=== PATIENT | male | born 1950 | race Caucasian/White ===

== ENCOUNTER → 2016-06-15 | Outpatient (CLI) | payer BC ==
[~2016-06-15] MED LIST: CHOL100027 PO; CYAN500T13 PO; METF1000 PO; MULT-506 PO; OMEG10007 PO; QUET1TAB37 PO; VITATAB19 PO
[2016-06-15 10:20] LABS: BLOOD UREA NITROGEN 15 mg/dl (7-18); BUN/CREATININE RATIO 11.1 (10-20); CALCIUM 8.9 mg/dl (8.5-10.1); CARBON DIOXIDE 27 mmol/L (21-32); CHLORIDE 108 mmol/L (98-107); GLUCOSE 202 mg/dl (70-99); POTASSIUM 4.2 mmol/L (3.5-5.1); SODIUM 142 mmol/L (136-145)
[2016-06-15 10:53] LABS: BASO % 0.6 %; BASO ABS # 0.04 K/uL (0-0.2); COMPLETE YES; EOS % 4.7 %; HEMATOCRIT 39.7 % (42-52); IG% 0.2 %; LYMPH % 32.7 %; LYMPH ABS # 2.08 K/uL (1.2-3.4); MEAN CORPUSCULAR HEMOGLOBIN 34.7 pg (25-34); MEAN PLATELET VOLUME 12.1 fL (7.4-10.4); NEUT % 53.8 %; PLATELET COUNT 124 K/uL (130-400); PLT ESTIMATE DECREASED; RED BLOOD COUNT 4.01 M/uL (4.7-6.1); WHITE BLOOD COUNT 6.36 K/uL (4.8-10.8)
== END | disposition home or self-care (01) ==
LOC: C.LAB1850 09:12
PROVIDERS: ATTEND Psychiatry & Neurology Psychiatry
DX: Z79.899 Other long term (current) drug therapy (principal); F25.9 Schizoaffective disorder, unspecified

== ENCOUNTER → 2016-08-04 | Outpatient (CLI) | payer BC ==
[2016-08-04 11:14] LABS: ALT/SGPT 32 U/L (12-78); AST/SGOT 16 U/L (15-37); BLOOD UREA NITROGEN 17 mg/dl (7-18); BUN/CREATININE RATIO 12.2 (10-20); CALCIUM 8.8 mg/dl (8.5-10.1); CARBON DIOXIDE 30 mmol/L (21-32); CHLORIDE 109 mmol/L (98-107); GLUCOSE 153 mg/dl (70-99); POTASSIUM 4.4 mmol/L (3.5-5.1); SODIUM 144 mmol/L (136-145); TRIGLYCERIDES 253 mg/dl (0-150); VERY LOW DENSITY LIPOPROT CALC 51 mg/dl
[2016-08-04 11:16] LABS: ALB/GLOB RATIO 1.3 (0.9-2); ALKALINE PHOSPHATASE 48 U/L (45-117); CHOLESTEROL 105 mg/dl (0-200); CHOLESTEROL/HDL RATIO 3.1; HDL CHOLESTEROL 34 mg/dl; LDL CHOLESTEROL CALCULATED 20 mg/dl
[2016-08-04 11:22] LABS: THYROID STIMULATING HORMONE 1.79 uIu/ml (0.300-4.500)
[2016-08-04 11:40] LABS: ESTIMATED AVERAGE GLUCOSE 160 mg/dl; HA1C FLAG Normal (Normal)
== END | disposition home or self-care (01) ==
LOC: C.LAB1850 09:41
PROVIDERS: ATTEND Family Medicine
DX: F25.9 Schizoaffective disorder, unspecified (principal); E03.9 Hypothyroidism, unspecified; E11.9 Type 2 diabetes mellitus without complications; E78.5 Hyperlipidemia, unspecified

== ENCOUNTER → 2016-08-16 | Outpatient (CLI) | payer BC | END | disposition home or self-care (01) | LOC: C.LAB 16:24 | PROVIDERS: ATTEND Physician Assistant Medical | DX: Z11.59 Encounter for screening for other viral diseases (principal) ==

== ENCOUNTER → 2016-09-30 | Outpatient (CLI) | payer BC ==
--- NOTE | 2016-09-30 10:33 | DIAGNOSTIC IMAGING REPORT ---
CHEST 2 VIEWS ROUTINE CLINICAL HISTORY: COUGH FEVER dyspnea COMPARISON STUDY: 06/07/2015 FINDINGS: Poorly defined parenchymal infiltrate left base. Lungs otherwise are clear. Diaphragms smooth. IMPRESSION: Poorly defined parenchymal infiltrate left base. Electronically signed by: Stevenson Murdock M.D. 09/30/2016 10:31 AM Dictated Date/Time: 09/30/2016 10:31 AM
== END | disposition home or self-care (01) ==
LOC: C.RADBC 10:13
PROVIDERS: ATTEND Internal Medicine
DX: R50.9 Fever, unspecified (principal); R05 Cough; R91.8 Other nonspecific abnormal finding of lung field

== ENCOUNTER → 2016-12-26 | Outpatient (CLI) | payer BC ==
[2016-12-26 11:21] LABS: ALT/SGPT 29 U/L (12-78); AST/SGOT 18 U/L (15-37); BLOOD UREA NITROGEN 22 mg/dl (7-18); BUN/CREATININE RATIO 14.4 (10-20); CALCIUM 9.4 mg/dl (8.5-10.1); CARBON DIOXIDE 27 mmol/L (21-32); CHLORIDE 110 mmol/L (98-107); GLUCOSE 156 mg/dl (70-99); POTASSIUM 4.8 mmol/L (3.5-5.1); SODIUM 142 mmol/L (136-145)
[2016-12-26 11:22] LABS: ESTIMATED AVERAGE GLUCOSE 160 mg/dl; HA1C FLAG Normal (Normal)
[2016-12-26 11:32] LABS: ALB/GLOB RATIO 1.2 (0.9-2); ALKALINE PHOSPHATASE 54 U/L (45-117); CHOLESTEROL 96 mg/dl (0-200); CHOLESTEROL/HDL RATIO 2.9; HDL CHOLESTEROL 33 mg/dl; LDL CHOLESTEROL CALCULATED 15 mg/dl; TRIGLYCERIDES 242 mg/dl (0-150); VERY LOW DENSITY LIPOPROT CALC 48 mg/dl
== END | disposition home or self-care (01) ==
LOC: C.LABBC 08:30
PROVIDERS: ATTEND Physician Assistant Medical
DX: E78.5 Hyperlipidemia, unspecified (principal); E11.9 Type 2 diabetes mellitus without complications

== ENCOUNTER → 2017-01-22 | Outpatient (CLI) | payer BC ==
[2017-01-22 13:51] LABS: BLOOD UREA NITROGEN 18 mg/dl (7-18); BUN/CREATININE RATIO 14.1 (10-20); CALCIUM 9.2 mg/dl (8.5-10.1); CARBON DIOXIDE 28 mmol/L (21-32); CHLORIDE 108 mmol/L (98-107); GLUCOSE 135 mg/dl (70-99); POTASSIUM 4.7 mmol/L (3.5-5.1); SODIUM 141 mmol/L (136-145)
== END | disposition home or self-care (01) ==
LOC: C.LAB1850 10:52
PROVIDERS: ATTEND Physician Assistant Medical
DX: N18.9 Chronic kidney disease, unspecified (principal); Z79.899 Other long term (current) drug therapy

== ENCOUNTER → 2017-04-02 | Outpatient (CLI) | payer BC ==
[2017-04-02 15:10] LABS: BLOOD UREA NITROGEN 20 mg/dl (7-18); BUN/CREATININE RATIO 15.4 (10-20); CALCIUM 8.8 mg/dl (8.5-10.1); CARBON DIOXIDE 26 mmol/L (21-32); CHLORIDE 108 mmol/L (98-107); CREATININE 1.32 mg/dl (0.60-1.40); POTASSIUM 4.7 mmol/L (3.5-5.1); SODIUM 140 mmol/L (136-145)
[2017-04-02 16:02] LABS: GLUCOSE 180 mg/dl (70-99)
[2017-04-03 05:58] LABS: ESTIMATED AVERAGE GLUCOSE 140 mg/dl; HA1C FLAG Normal (Normal)
== END | disposition home or self-care (01) ==
LOC: C.LAB1850 13:21
PROVIDERS: ATTEND Nurse Practitioner Family
DX: I10 Essential (primary) hypertension (principal); E11.65 Type 2 diabetes mellitus with hyperglycemia

== ENCOUNTER → 2017-07-03 | Outpatient (CLI) | payer BC ==
[2017-07-03 13:31] LABS: BASO % 0.3 %; BASO ABS # 0.03 K/uL (0-0.2); EOS % 2.2 %; EOS ABS # 0.22 K/uL (0-0.5); HEMATOCRIT 37.1 % (42-52); HEMOGLOBIN 12.6 g/dL (14.0-18.0); IG# 0.03 K/uL (0.00-0.02); LYMPH % 19.4 %; LYMPH ABS # 1.94 K/uL (1.2-3.4); MEAN CELL VOLUME 100.5 fL (80-100); MEAN CORPUSCULAR HEMOGLOBIN 34.1 pg (25-34); MEAN PLATELET VOLUME 11.9 fL (7.4-10.4); MONO % 8.9 %; MONO ABS # 0.89 K/uL (0.11-0.59); NEUT % 68.9 %; NEUT ABS # 6.87 K/uL (1.4-6.5); PLATELET COUNT 151 K/uL (130-400); RED CELL DISTRIBUTION WIDTH CV 12.8 % (11.5-14.5); RED CELL DISTRIBUTION WIDTH SD 47.4 fL (36.4-46.3); WHITE BLOOD COUNT 9.98 K/uL (4.8-10.8)
[2017-07-03 13:48] LABS: HEMOGLOBIN A1C 5.5 % (4.5-5.6)
[2017-07-03 14:26] LABS: BLOOD UREA NITROGEN 32 mg/dl (7-18); CALCIUM 9.5 mg/dl (8.5-10.1); CARBON DIOXIDE 22 mmol/L (21-32); CREATININE 1.56 mg/dl (0.60-1.40); GLUCOSE 107 mg/dl (70-99); GLUCOSE,FASTING 107 mg/dl (70-99); POTASSIUM 4.7 mmol/L (3.5-5.1); SODIUM 135 mmol/L (136-145)
[2017-07-03 14:40] LABS: CHOLESTEROL 84 mg/dl (0-200); LDL CHOLESTEROL CALCULATED 11 mg/dl
== END | disposition home or self-care (01) ==
LOC: C.LABBC 10:43
PROVIDERS: ATTEND Nurse Practitioner Family
DX: Z51.81 Encounter for therapeutic drug level monitoring (principal); Z79.899 Other long term (current) drug therapy; E11.65 Type 2 diabetes mellitus with hyperglycemia

== ENCOUNTER → 2017-08-17 | Outpatient (CLI) | payer BC ==
--- NOTE | 2017-08-17 11:53 | DIAGNOSTIC IMAGING REPORT ---
(RENAL)RETROPERITON COMP HISTORY: 67 years-old Male N18.9 Chronic kidney [id number] COMPARISON: CT abdomen and pelvis 08/03/2011. TECHNIQUE: Multiple real-time sonographic images of the kidneys and urinary bladder were obtained assessing grayscale appearance and color flow FINDINGS: Right kidney measures 12.3 x 5.0 x 5.4 cm and is within normal limits without renal calculi, hydronephrosis or focal renal mass lesions. Bladder is partially decompressed with only the right ureteral jet identified. Mild wall thickening of the bladder is also suggested. The left kidney measures 13.2 x 4.8 x 5.5 cm and is also within normal limits without renal calculi, hydronephrosis or suspicious mass lesion. Spleen is mildly enlarged, 16.0 cm. IMPRESSION: 1. Unremarkable sonographic appearance of the kidneys without renal calculi or hydronephrosis. 2. Partially decompressed urinary bladder with wall thickening. Correlate with urinalysis to exclude cystitis. 3. Splenomegaly incidentally noted. The above report was generated using voice recognition software. It may contain grammatical, syntax or spelling errors. Electronically signed by: Trevor Dennison M.D. 08/17/2017 11:52 AM Dictated Date/Time: 08/17/2017 11:49 AM
== END | disposition home or self-care (01) ==
LOC: C.ULTR 10:59
PROVIDERS: ATTEND Physician Assistant Medical
DX: N18.9 Chronic kidney disease, unspecified (principal)

== ENCOUNTER → 2017-08-24 | Outpatient (CLI) | payer BC ==
[2017-08-24 15:18] LABS: BLOOD UREA NITROGEN 30 mg/dl (7-18); CALCIUM 9.3 mg/dl (8.5-10.1); CARBON DIOXIDE 21 mmol/L (21-32); CREATININE 1.57 mg/dl (0.60-1.40); GLUCOSE 137 mg/dl (70-99); POTASSIUM 4.8 mmol/L (3.5-5.1); SODIUM 137 mmol/L (136-145)
== END | disposition home or self-care (01) ==
LOC: C.LABBC 11:15
PROVIDERS: ATTEND Physician Assistant Medical
DX: Z00.00 Encounter for general adult medical examination without abnormal findings (principal); N18.9 Chronic kidney disease, unspecified

== ENCOUNTER → 2017-09-03 | Outpatient (CLI) | payer BC | END | disposition home or self-care (01) | LOC: C.LAB1850 09:40 | PROVIDERS: ATTEND Physician Assistant Medical | DX: N32.89 Other specified disorders of bladder (principal) ==

== ENCOUNTER → 2017-09-11 | Outpatient (CLI) | payer BC ==
[2017-09-11 14:37] LABS: BLOOD UREA NITROGEN 23 mg/dl (7-18); CALCIUM 9.3 mg/dl (8.5-10.1); CARBON DIOXIDE 24 mmol/L (21-32); CREATININE 1.51 mg/dl (0.60-1.40); GLUCOSE 123 mg/dl (70-99); POTASSIUM 4.9 mmol/L (3.5-5.1); SODIUM 138 mmol/L (136-145)
== END | disposition home or self-care (01) ==
LOC: C.LABPBG 10:45
PROVIDERS: ATTEND Psychiatry & Neurology Psychiatry
DX: F25.9 Schizoaffective disorder, unspecified (principal); Z79.899 Other long term (current) drug therapy

== ENCOUNTER → 2018-01-10 | Outpatient (CLI) | payer BC | END | disposition home or self-care (01) | LOC: C.LABBC 09:06 | PROVIDERS: ATTEND Nurse Practitioner Family | DX: E03.9 Hypothyroidism, unspecified (principal) ==

== ENCOUNTER 2021-04-12 09:08 | Inpatient (IN) ==
--- NOTE | 2021-04-12 09:11 | Emergency Department Note ---
Impression & Plan Acute hypoxemic respiratory failure due to COVID-19, Pneumonia due to 2019 novel coronavirus, DINORAH (acute kidney injury), Pancytopenia ED Provider Note NAME: JESIKA BALES AGE: 71 SEX: M : 1950 ARRIVES VIA: Ambulance INFORMANT: Patient, ED PROVIDER(S): Vishal Rivera MD Chief Complaint: Shortness of breath HPI: Patient did present due to concern for shortness of breath which is been ongoing for the last several days although seem to be acutely worse today with associated confusion and the patient did have a fall out of bed. Patient is unsure as to where the no strokes had. Patient does take baby aspirin but does not take any other blood thinning medications. The patient denies any chest dipti ns or pains anywhere else. The patient reportedly tested positive for COVID-19 a week ago. The patient stated that he was unvaccinated to nursing but stated that he was vaccinated at the bedside. Patient did have a temperature of 37 7. Patient is a smoker. Patient reportedly had a pulse ox in the 80s prior to arrival per but not per EMS. Patient's BSG was greater than 300. ROS: See HPI for pertinent positives and negatives. A total of 10 systems were reviewed and otherwise negative. Past medical history: See below Surgical history: See below Social history: See below Physical Exam: GENERAL: Ill in appearance. EYE EXAM: Normal conjunctiva. PERRL, no anisocoria and EOM's grossly intact w/o pain. Head: Normocephalic atraumatic. OROPHARYNX: Moist mucus membranes. Grossly normal dentition. NECK: Supple, no nuchal rigidity, no adenopathy, non-tender. No signs of meningismus. No midline C-spine TTP. Chest: No reproducible chest wall pain. LUNGS: Crackles throughout. Normal chest wall mechanics. HEART: NSR, no MRG. ABDOMEN: Abdomen soft, midline incisional scar noted with right sided colostomy with brown stool, normo-active bowel sounds, no masses, no rebound or guarding. BACK: No CVA TTP. SKIN: No rashes and no bruising. UPPER EXTREMITIES: Upper extremities are grossly normal. No obvious deformity or TTP. LOWER EXTREMITIES: Grossly normal, no edema. No obvious deformity or TTP. NEURO EXAM: A&O x3, cranial nerves II-XII grossly intact, normal speech, moves all 4 extremities on command w/o issue. Differential diagnoses: Reactive airway disease, pneumonia, pneumothorax, COPD, CHF, infections, cardiac ischemia, pulmonary embolism, musculoskeletal, gastrointestinal, as well as other pathologies. Course: Patient was seen and evaluated the bedside. Full history physical exam was performed. EKG interpreted by me Normal sinus rhythm, rate of 79, normal intervals, normal axis, no ST changes or T WI. Imaging Studies: See Below Cardiac monitoring: An order was placed for continuous cardiac monitoring. The monitor shows a rate of 88 with sinus rhythm. MDM: Patient was seen due to concern for effusion followed by a recent Covid diagnosis. Patient also does have history of bipolar disorder and schizoaffective. Blood work was obtained. The patient does have leukopenia and thrombocytopenia with a hemoglobin 11.6. Kidney function worse compared to prior at 2.4. Glucose is 273 but the patient has normal bicarb and anion gap. Troponin is not detectable. VBG with no hypercarbia. Patient CT head negative. Chest x-ray does show left midlung and left basilar airspace opacities suggestive of pneumonia. Blood cultures were obtained. The patient's procalcitonin is not elevated. I did speak to the on-call hospitalist given the reported hypoxia at home. Patient was admitted to the medicine service by Dr. Reeves. Past Med/Surg History Medical History Anemia Bipolar I disorder, most recent episode (or current) manic Chronic kidney disease, stage III (moderate) Colostomy present Dyslipidemia Essential hypertension First degree AV block GERD without esophagitis Hypothyroidism Loss of protective sensation of skin of foot Obesity (BMI 30-39.9) Peripheral neuropathy Schizoaffective disorder Stage 3b chronic kidney disease Type 2 diabetes mellitus Type 2 diabetes mellitus with chronic kidney disease, with long-term current use of insulin Vitamin D deficiency Surgical History H/O colectomy (09/2011) History of tracheostomy S/P cataract surgery S/P eye surgery S/P tooth extraction Family History Brother Myocardial infarction Coronary heart disease Father Congestive heart failure Diabetes Mother Coronary heart disease Denies family history of Ovarian cancer Prostate cancer Breast cancer Colorectal cancer Social History Smoking Status: Current every day smoker Tobacco Type: Cigarettes packs per day: 1; Hx Alcohol Use: No Hx Substance Use: No Preferred Language: Uzbek Communication Ability: Effective Visual Impairment: Blindness Hearing Ability: Normal Beliefs That Will Affect Care: None marital status: Current Living Situation: Spouse current occupational status: 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 ) during the past year weight has: remained stable Dental Care, Regularly: No Physical Activity Frequency: Daily Physical Activity Frequency Comment: walk Seatbelt Use: always Sunscreen Use: Yes Allergies Allergies Allergy/AdvReac Type Severity Reaction Status Date / Time adhesive tape Allergy Verified 03/02/21 10:57 latex Allergy Verified 03/02/21 10:57 No Known Drug Allergies Allergy Verified 03/02/21 10:57 Home Meds Home Medications Medication Instructions Recorded Confirmed aspirin 81 mg tablet 81 mg PO DAILY tab 12/13/18 03/02/21 cholecalciferol (vitamin D3) 25 1,000 units PO DAILY tab 12/13/18 03/02/21 mcg (1,000 unit) tablet lithium carbonate 300 mg tablet 300 mg PO HS tab 12/13/18 03/02/21 mecobalamin (vitamin B12) 1,000 1,000 mcg SL DAILY 12/13/18 03/02/21 mcg disintegrating tablet,sublingual loperamide 2 mg capsule 2 mg PO DAILY cap 04/10/19 03/02/21 omega-3 fatty acids 1,000 mg 1,000 mg PO DAILY cap 04/15/19 03/02/21 capsule (Fish Oil Concentrate) multivitamin with iron 1 tab PO DAILY 05/07/19 03/02/21 quetiapine 300 mg tablet 600 mg PO DAILY tab 06/03/19 03/02/21 zinc 50 mg tablet 50 mg PO DAILY 07/09/20 03/02/21 lisinopril 5 mg tablet 5 mg PO DAILY tab 02/11/21 03/02/21 Previous Rx's Medication Instructions Recorded pen needle, diabetic 32 gauge x #300 ea 09/16/19" (BD Ultra-Fine Ngozi Pen Needle) omeprazole 20 mg capsule,delayed 20 mg PO DAILY #90 cap 06/18/20 release insulin glargine 100 unit/mL (3 20 unit SQ .COMPLEX 90 Days #15 ml 07/30/20 mL) subcutaneous pen (Basaglar KwikPen U-100 Insulin) Victoza 3-Jose 0.6 mg/0.1 mL (18 1.8 mg SQ .COMPLEX #27 ml NS 02/22/21 mg/3 mL) subcutaneous pen injector (liraglutide) metformin 500 mg tablet 500 mg PO BID #180 tab 02/22/21 levothyroxine 50 mcg tablet 50 mcg PO DAILY #90 tab 02/25/21 atorvastatin 10 mg tablet 20 mg PO DAILY #90 tab 02/28/21 Results & Data (ED) Vital Signs Vital Signs - 24 hr 04/12/21 09:22 04/12/21 09:30 04/12/21 10:00 Temperature Temperature Source Pulse Rate 82 82 83 Pulse Rate from SpO2 Sensor 83 Respiratory Rate 22 24 20 Respiratory Effort / Characteristics Respiratory Depth Blood Pressure Blood Pressure Mean Pulse Oximetry 92 Oxygen Delivery Method Sepsis Recent Fever Within 48 Hours Sepsis New/Unexplained Change in Mental Status Sepsis Action Taken by Nursing 04/12/21 10:30 04/12/21 10:39 Temperature 37.6 C H Temperature Source Oral Pulse Rate 75 73 Pulse Rate from SpO2 Sensor 69 Respiratory Rate 22 20 Respiratory Effort / Characteristics Spontaneous Respiratory Depth Normal Blood Pressure 127/56 L 127/56 L Blood Pressure Mean 79 79 Pulse Oximetry 94 93 Oxygen Delivery Method Room Air Sepsis Recent Fever Within 48 Hours Yes Sepsis New/Unexplained Change in Mental Status N/A Sepsis Action Taken by Nursing No Action Required Laboratory Data Result diagrams: 04/12/21 09:26 04/12/21 09:26 Lab Results 04/12/21 04/12/21 04/12/21 Range/Units 09:26 09:26 09:26 WBC 3.51 L (4.8-10.8) K/uL RBC 3.42 L (4.7-6.1) M/uL Hgb 11.6 L (14.0-18.0) g/dL Hct 33.0 L (42-52) % MCV 96.5 (80-100) fL MCH 33.9 (25-34) pg MCHC 35.2 (32-36) g/dL RDW Std Deviation 48.1 H (36.4-46.3) fL RDW Coeff of Surinder 13.5 (11.5-14.5) % Plt Count 97 L (130-400) K/uL MPV 11.5 H (7.4-10.4) fL Immature Gran % (Auto) 0.3 % Neut % (Auto) 76.3 % Lymph % (Auto) 12.8 % Butler % (Auto) 10.3 % Eos % (Auto) 0.0 % Baso % (Auto) 0.3 % Neut # (Auto) 2.68 (1.4-6.5) K/uL Lymph # (Auto) 0.45 L (1.2-3.4) K/uL Butler # (Auto) 0.36 (0.11-0.59) K/uL Eos # (Auto) 0.00 (0-0.5) K/uL Baso # (Auto) 0.01 (0-0.2) K/uL Immature Gran # (Auto) 0.01 (0.00-0.02) K/uL Platelet Estimate Decreased L (Normal) RBC Morphology Unremarkable PT Cancelled INR Cancelled APTT Cancelled PTT Ratio Cancelled VBG pH (7.36-7.41) VBG pCO2 (38-50) mmHg VBG pO2 mmHg VBG HCO3 mmol/L VBG O2 Saturation % VBG Base Excess mEq/L Barometric Pressure mm/Hg Sodium 135 L (136-145) mmol/L Potassium 4.6 (3.5-5.1) mmol/L Chloride 107 (98-107) mmol/L Carbon Dioxide 22 (21-32) mmol/L Anion Gap 6.0 (3-11) BUN 35 H (7-18) mg/dl Creatinine 2.40 H (0.6-1.4) mg/dl Est Cr Clr Drug Dosing Not Reportable Est GFR ( Amer) 30.1 ml/min Est GFR (Non-Af Amer) 26.0 ml/min BUN/Creatinine Ratio 14.5 (10-20) Glucose 273 H (70-99) mg/dl Lactate (0.4-2.0) mmol/L Calcium 8.7 (8.5-10.1) mg/dl Magnesium 1.7 L (1.8-2.4) mg/dl Total Bilirubin 0.8 (0.2-1) mg/dl AST 38 H (15-37) U/L ALT 27 (12-78) U/L Alkaline Phosphatase 63 (45-117) U/L Troponin I < 0.015 (0-0.045) ng/ml Total Protein 7.0 (6.4-8.2) gm/dl Albumin 2.9 L (3.4-5.0) gm/dl Globulin 4.1 H (2.5-4.0) gm/dl Albumin/Globulin Ratio 0.7 L (0.9-2) Procalcitonin (0-0.5) ng/ml COVID-19 Eval Order 04/12/21 04/12/21 04/12/21 Range/Units 09:26 09:55 10:03 WBC (4.8-10.8) K/uL RBC (4.7-6.1) M/uL Hgb (14.0-18.0) g/dL Hct (42-52) % MCV (80-100) fL MCH (25-34) pg MCHC (32-36) g/dL RDW Std Deviation (36.4-46.3) fL RDW Coeff of Surinder (11.5-14.5) % Plt Count (130-400) K/uL MPV (7.4-10.4) fL Immature Gran % (Auto) % Neut % (Auto) % Lymph % (Auto) % Butler % (Auto) % Eos % (Auto) % Baso % (Auto) % Neut # (Auto) (1.4-6.5) K/uL Lymph # (Auto) (1.2-3.4) K/uL Butler # (Auto) (0.11-0.59) K/uL Eos # (Auto) (0-0.5) K/uL Baso # (Auto) (0-0.2) K/uL Immature Gran # (Auto) (0.00-0.02) K/uL Platelet Estimate (Normal) RBC Morphology PT 9.8 INR 1.0 APTT 35.3 H PTT Ratio 1.3 VBG pH (7.36-7.41) VBG pCO2 (38-50) mmHg VBG pO2 mmHg VBG HCO3 mmol/L VBG O2 Saturation % VBG Base Excess mEq/L Barometric Pressure mm/Hg Sodium (136-145) mmol/L Potassium (3.5-5.1) mmol/L Chloride (98-107) mmol/L Carbon Dioxide (21-32) mmol/L Anion Gap (3-11) BUN (7-18) mg/dl Creatinine (0.6-1.4) mg/dl Est Cr Clr Drug Dosing Est GFR ( Amer) ml/min Est GFR (Non-Af Amer) ml/min BUN/Creatinine Ratio (10-20) Glucose (70-99) mg/dl Lactate 1.5 (0.4-2.0) mmol/L Calcium (8.5-10.1) mg/dl Magnesium (1.8-2.4) mg/dl Total Bilirubin (0.2-1) mg/dl AST (15-37) U/L ALT (12-78) U/L Alkaline Phosphatase (45-117) U/L Troponin I (0-0.045) ng/ml Total Protein (6.4-8.2) gm/dl Albumin (3.4-5.0) gm/dl Globulin (2.5-4.0) gm/dl Albumin/Globulin Ratio (0.9-2) Procalcitonin 0.21 (0-0.5) ng/ml COVID-19 Eval Order 04/12/21 04/12/21 Range/Units 10:03 10:24 WBC (4.8-10.8) K/uL RBC (4.7-6.1) M/uL Hgb (14.0-18.0) g/dL Hct (42-52) % MCV (80-100) fL MCH (25-34) pg MCHC (32-36) g/dL RDW Std Deviation (36.4-46.3) fL RDW Coeff of Surinder (11.5-14.5) % Plt Count (130-400) K/uL MPV (7.4-10.4) fL Immature Gran % (Auto) % Neut % (Auto) % Lymph % (Auto) % Butler % (Auto) % Eos % (Auto) % Baso % (Auto) % Neut # (Auto) (1.4-6.5) K/uL Lymph # (Auto) (1.2-3.4) K/uL Butler # (Auto) (0.11-0.59) K/uL Eos # (Auto) (0-0.5) K/uL Baso # (Auto) (0-0.2) K/uL Immature Gran # (Auto) (0.00-0.02) K/uL Platelet Estimate (Normal) RBC Morphology PT INR APTT PTT Ratio VBG pH 7.43 H (7.36-7.41) VBG pCO2 29 L (38-50) mmHg VBG pO2 51 mmHg VBG HCO3 19 mmol/L VBG O2 Saturation 85.1 % VBG Base Excess -4.5 mEq/L Barometric Pressure 736.2 mm/Hg Sodium (136-145) mmol/L Potassium (3.5-5.1) mmol/L Chloride (98-107) mmol/L Carbon Dioxide (21-32) mmol/L Anion Gap (3-11) BUN (7-18) mg/dl Creatinine (0.6-1.4) mg/dl Est Cr Clr Drug Dosing Est GFR ( Amer) ml/min Est GFR (Non-Af Amer) ml/min BUN/Creatinine Ratio (10-20) Glucose (70-99) mg/dl Lactate (0.4-2.0) mmol/L Calcium (8.5-10.1) mg/dl Magnesium (1.8-2.4) mg/dl Total Bilirubin (0.2-1) mg/dl AST (15-37) U/L ALT (12-78) U/L Alkaline Phosphatase (45-117) U/L Troponin I (0-0.045) ng/ml Total Protein (6.4-8.2) gm/dl Albumin (3.4-5.0) gm/dl Globulin (2.5-4.0) gm/dl Albumin/Globulin Ratio (0.9-2) Procalcitonin (0-0.5) ng/ml COVID-19 Eval Order Covid19 at [facility] Administered Medications Discontinued Medications Dexamethasone Sodium Phosphate (DexamethasonePf 10 Mg/Ml Vial) 6 mg IV NOW ONE Stop: 04/12/21 09:25 Last Admin: 04/12/21 10:17 Dose: 6 mg Documented by: [id number] Sodium Chloride (Nss 1000ml) 1,000 mls @ 999 mls/hr IV .Q1H1M MARGARET Stop: 04/12/21 10:30 Last Admin: 04/12/21 10:17 Dose: 999 mls/hr Documented by: [id number] Imaging Data Radiologist's Impression: Chest X-Ray 04/12/21 09:24 XR chest 1V portable HISTORY: 71 years-old Male SEPSIS acute sepsis COMPARISON: Chest radiographs 09/30/2016 TECHNIQUE: Portable AP view of the chest FINDINGS: Cardiac silhouette is enlarged. Ill-defined left midlung and left basilar predominant airspace opacities. No pneumothorax or large pleural effusion. Question subtle airspace opacities of the right lung base. Degenerative changes of the shoulders and spine. Calcified plaque of the thoracic aorta. IMPRESSION: Left midlung and left basilar airspace opacities are suggestive of pneumonia. ACT 112: Negative or not required by law. The above report was generated using voice recognition software. It may contain grammatical, syntax or spelling errors. Electronically signed by: Robert Dennison M.D. 04/12/2021 10:[address] 04/12/21 09:31 CT head/brain wo con CLINICAL HISTORY: 71 years-old Male with ?fall. Acute head injury status post fall with weakness and confusion TECHNIQUE: Multiple axial CT images of the head were obtained without contrast. A dose lowering technique was utilized adhering to the principles of ALARA. CT DOSE: 1228.53 mGy.cm COMPARISON: None. FINDINGS: No acute intracranial hemorrhage, midline shift, intracranial mass, hydrocephalus, territorial ischemia or abnormal extra-axial collection. Age- related involutional changes with cavum septum pellucidum. White matter hypodensities suggest chronic microvascular ischemic disease. Megacisterna magna. Low-lying cerebellar tonsils. Cerebral vascular calcifications. The calvarium is intact. Mastoid air cells are clear. Mild mucosal thickening of the paranasal sinuses. IMPRESSION: No acute intracranial abnormality or calvarial fracture. ACT 112: Negative or not required by law. The above report was generated using voice recognition software. It may contain grammatical, syntax or spelling errors. Electronically signed by: Robert Dennison M.D. 04/12/2021 11:21 AM Discharge Plan Visit Data Chief Complaint: Shortness of Breath/Dyspnea ED Provider: Vishal Rivera Discharge Problem: Acute hypoxemic respiratory failure due to COVID-19, Pneumonia due to 2019 novel coronavirus, IDNORAH (acute kidney injury), Pancytopenia Patient Disposition: Admitted As Inpatient Forms Stand Alone Forms: My [facility] Prescriptions Prescriptions: No Action multivitamin with iron tablet 1 tab PO DAILY RF: 0 (DME) pen needle, diabetic [BD Ultra-Fine Ngozi Pen Needle] 32 gauge x 5/32" needle See Rx Instructions .ROUTE .MEDSUPPLY Qty: 300 RF: 3 omeprazole 20 mg capsule,delayed release(DR/EC) 20 mg PO DAILY Qty: 90 RF: 2 metformin 500 mg tablet 500 mg PO BID Qty: 180 RF: 3 Victoza 3-Jose 0.6 mg/0.1 mL (18 mg/3 mL) pen injector 1.8 mg SQ .COMPLEX Qty: 27 RF: 3 levothyroxine 50 mcg tablet 50 mcg PO DAILY Qty: 90 RF: 3 atorvastatin 10 mg tablet 20 mg PO DAILY Qty: 90 RF: 1 zinc 50 mg tablet 50 mg PO DAILY RF: 0 omega-3 fatty acids [Fish Oil Concentrate] 1,000 mg capsule 1,000 mg PO DAILY RF: 0 Basaglar KwikPen U-100 Insulin 100 unit/mL (3 mL) insulin pen 20 unit SQ .COMPLEX 90 Days Qty: 15 RF: 3 cholecalciferol (vitamin D3) 1,000 unit tablet 1,000 units PO DAILY RF: 0 aspirin 81 mg tablet 81 mg PO DAILY RF: 0 mecobalamin (vitamin B12) 1,000 mcg tablet,disintegrating 1,000 mcg SL DAILY RF: 0 lithium carbonate 300 mg tablet 300 mg PO HS RF: 0 loperamide 2 mg capsule 2 mg PO DAILY RF: 0 quetiapine 300 mg tablet 600 mg PO DAILY RF: 0 lisinopril 5 mg tablet 5 mg PO DAILY RF: 0 Referrals Referrals: Brionna Lama DO [Primary Care Provider] -
[2021-04-12] MEDS ORDERED: dexAMETHasone**PF** 10 MG/ML VIAL IV ONE (09:24)
[2021-04-12] MEDS ORDERED: SODIUM CHLORIDE 0.9% 1000ML 1,000 ML IV SCH ×2 (09:30→14:54)
[2021-04-12 09:41] LABS: Hemoglobin 11.6 g/dL (14.0-18.0); Mean Corpuscular Hemoglobin 33.9 pg (25-34); Mean Corpuscular Hgb Conc 35.2 g/dL (32-36); Mean Corpuscular Volume 96.5 fL (80-100); RDW Coefficient of Variation 13.5 % (11.5-14.5); RDW Standard Deviation 48.1 fL (36.4-46.3); Red Blood Count 3.42 M/uL (4.7-6.1); White Blood Count 3.51 K/uL (4.8-10.8)
[2021-04-12 10:01] LABS: Basophils # (auto) 0.01 K/uL (0-0.2); Basophils % (auto) 0.3 %; Immature Granulocytes # (auto) 0.01 K/uL (0.00-0.02); Immature Granulocytes % (auto) 0.3 %; Lymphocytes # (auto) 0.45 K/uL (1.2-3.4); Lymphocytes % (auto) 12.8 %; Mean Platelet Volume 11.5 fL (7.4-10.4); Monocytes # (auto) 0.36 K/uL (0.11-0.59); Monocytes % (auto) 10.3 %; Neutrophils # (auto) 2.68 K/uL (1.4-6.5); Neutrophils % (auto) 76.3 %; Platelet Count 97 K/uL (130-400); Platelet Estimate Decreased (Normal); RBC Morphology Unremarkable
[2021-04-12 10:13] LABS: Alanine Aminotransferase 27 U/L (12-78); Albumin Level 2.9 gm/dl (3.4-5.0); Aspartate Aminotransferase 38 U/L (15-37); BUN Creatinine Ratio 14.5 (10-20); Blood Urea Nitrogen 35 mg/dl (7-18); Calcium 8.7 mg/dl (8.5-10.1); Carbon Dioxide 22 mmol/L (21-32); Chloride 107 mmol/L (98-107); Est GFR (African American) 30.1 ml/min; Glucose 273 mg/dl (70-99); Magnesium 1.7 mg/dl (1.8-2.4); Potassium 4.6 mmol/L (3.5-5.1); Sodium 135 mmol/L (136-145)
[2021-04-12 10:22] LABS: Troponin I < 0.015 ng/ml (0-0.045)
[2021-04-12 10:23] LABS: Albumin Globulin Ratio 0.7 (0.9-2); Alkaline Phosphatase 63 U/L (45-117); Bilirubin,Total 0.8 mg/dl (0.2-1); Globulin 4.1 gm/dl (2.5-4.0)
[2021-04-12 10:26] LABS: Partial Thromboplastin Ratio 1.3; Partial Thromboplastin Time 35.3 Seconds (21.0-31.0); Prothrombin Time 9.8 Seconds (9.0-12.0)
[2021-04-12 10:45] LABS: Base Excess VBG -4.5 mEq/L; Oxygen Saturation VBG 85.1 %; pH VBG 7.43 (7.36-7.41)
--- NOTE | 2021-04-12 10:45 | XRay Report ---
XR chest 1V portable HISTORY: 71 years-old Male SEPSIS acute sepsis COMPARISON: Chest radiographs 09/30/2016 TECHNIQUE: Portable AP view of the chest FINDINGS: Cardiac silhouette is enlarged. Ill-defined left midlung and left basilar predominant airspace opacit ies. No pneumothorax or large pleural effusion. Question subtle airspace opacities of the right lung base. Degenerative changes of the shoulders and spine. Calcified plaque of the thoracic aorta. IMPRESSION: Left midlung and left basilar airspace opacities are suggestive of pneumonia. ACT 112: Negative or not required by law. The above report was generated using voice recognition software. It may contain grammatical, syntax o r spelling errors. Electronically signed by: Robert Dennison M.D. 04/12/2021 10:44 AM
--- NOTE | 2021-04-12 11:23 | CT Scan Report ---
CT head/brain wo con CLINICAL HISTORY: 71 years-old Male with ?fall. Acute head injury status post fall with weakness and confusion TECHNIQUE: Multiple axial CT images of the head were obtained without contrast. A dose lowering tech nique was utilized adhering to the principles of ALARA. CT DOSE: 1228.53 mGy.cm COMPARISON: None. FINDINGS: No acute intracranial hemorrhage, midline shift, intracranial mass, hydrocephalus, territorial ischem ia or abnormal extra-axial collection. Age-related involutional changes with cavum septum pellucidum. White matter hypodensities suggest chronic microvascular ischemic disease. Megacisterna magna. Low-l anabella cerebellar tonsils. Cerebral vascular calcifications. The calvarium is intact. Mastoid air cells are clear. Mild mucosal thickening of the paranasal sinus es. IMPRESSION: No acute intracranial abnormality or calvarial fracture. ACT 112: Negative or not required by law. The above report was generated using voice recognition software. It may contain grammatical, syntax o r spelling errors. Electronically signed by: Robert Dennison M.D. 04/12/2021 11:21 AM
[2021-04-12] MEDS ORDERED: MAGNESIUM SULFATE / D5W 1 GM/100 ML BAG IV STA (11:41)
--- NOTE | 2021-04-12 11:55 | History & Physical Report ---
Date of Service April 12, 2021 Assessment & Plan (1) Pneumonia due to 2019 novel coronavirus: Plan: Patient with an infiltrate seen in the left lung. Patient is not hypoxic patient is febrile. Patient does not qualify for remdesivir due to lack of hypoxemia. Patient be given dexamethasone. Be on airborne isolation Patient likely with some metabolic encephalopathy on presentation secondary to his Covid infection however this could also be toxic encephalopathy if his lithium level comes back supra therapeutic this is pending at the time of admission Due to the lobar nature of the infiltrate seen azithromycin was begun will be continued p.o. additionally Mucinex was also ordered (2) DINORAH (acute kidney injury): Plan: Acute kidney injury with history of chronic kidney disease stage III attributed to his diabetes and hypertension. Patient was given intravenous fluids in the emergency department be continued on low rate normal saline overnight. BRANDI inhibitor will be held Due to his acute kidney injury his lithium will be held which is usually to treat his schizoaffective disorder and level will be sent attention needs to be paid for this to be restarted at the appropriate time and perhaps pharmacy consulted for dose adjustments (3) Type 2 diabetes mellitus with chronic kidney disease, with long-term current use of insulin: Plan: Patient with history of type 2 diabetes usually using glargine Victoza and Metformin at home. The glargine to be continued Victoza Metformin held patient be given sliding scale insulin and started on NPH insulin to also counteract the effects of his dexamethasone. The patient will have an A1c checked and be on a diabetic diet (4) Essential hypertension: Plan: Typically having essential hypertension treated with lisinopril 5 this is held due to his DINORAH we will follow his blood pressures (5) Dyslipidemia: Plan: Atorvastatin is maintained for his dyslipidemia and secondary disease prevention with his diabetes (6) Bipolar I disorder, most recent episode (or current) manic: Plan: lithium held due to acute kidney injury and concern for possible toxic encephalopathy, level pending on admission, continue quetiapine and lamotrigine, reduce quetiapine dose due to confusion (7) Anemia: Plan: Patient has anemia of chronic disease hemoglobin is 11 on admission this is slightly lower than his typical home range. (8) Obesity (BMI 30-39.9): Plan: Patient has body weight of 279 a BMI of 38 this places him at higher risk for Covid morbidity (9) DVT prophylaxis: Plan: Patient we will put on 0.5 mg/kg subcu Lovenox twice daily for Covid DVT prevention (10) Fall: Plan: Patient had a fall at home likely from weakness from deconditioning and dehydration from COVID PT OT evaluation be undertaken (11) Colostomy present: Plan: Patient's colostomy is well functioning reportedly it was after a total colectomy secondary to a C. difficile infection. We will have ostomy team evaluate his site History of Present Illness Primary Care Provider: Brionna Lama DO Patient presents due to concern for shortness of breath which is been ongoing for the last several days although seem to be acutely worse 04/12 with associated pre hospital covid + test, confusion and acute kidney injury. The patient is positive for Covid in the ER 04/12/21.The patient stated that he was unvaccinated confirmed by his . Patient did have a temperature of 37 7. Patient is a smoker. Patient reportedly had a pulse ox in the 80s prior to a rrival per but not per EMS. the pt has CXR changes consistent with pneumonia At home the patient did have a fall out of bed without apparent injury and negative CT of head in the ER. . Patient does take baby aspirin but does not take any other blood thinning medications. The patient denies any chest pains or pains anywhere else. . The pt appears clinically dehydrated and has acute kidney injury with h/o CKD3. Patient's BSG was greater than 300. Allergies Allergy/AdvReac Type Severity Reaction Status Date / Time adhesive tape Allergy Verified 04/12/21 11:32 latex Allergy Verified 04/12/21 11:32 No Known Drug Allergies Allergy Verified 04/12/21 11:32 Home Medications Medication Instructions Recorded Confirmed Type cholecalciferol (vitamin D3) 25 1,000 units PO QAM tab 12/13/18 04/12/21 History mcg (1,000 unit) tablet mecobalamin (vitamin B12) 1,000 1,000 mcg SL QAM 12/13/18 04/12/21 History mcg disintegrating tablet,sublingual loperamide 2 mg capsule 2 mg PO QAM cap 04/10/19 04/12/21 History omega-3 fatty acids 1,000 mg 1,000 mg PO QAM cap 04/15/19 04/12/21 History capsule (Fish Oil Concentrate) multivitamin with iron 1 tab PO QAM 05/07/19 04/12/21 History quetiapine 300 mg tablet 600 mg PO HS tab 06/03/19 04/12/21 History pen needle, diabetic 32 gauge x #300 ea 09/16/19 03/02/21 Rx 5/32" (BD Ultra-Fine Ngozi Pen Needle) zinc 50 mg tablet 50 mg PO QAM 07/09/20 04/12/21 History lisinopril 5 mg tablet 5 mg PO QAM tab 02/11/21 04/12/21 History metformin 500 mg tablet 500 mg PO BID #180 tab 02/22/21 04/12/21 Rx aspirin 81 mg tablet,delayed 81 mg PO QAM 04/12/21 04/12/21 History release atorvastatin 10 mg tablet 20 mg PO QAM 04/12/21 04/12/21 History insulin glargine 100 unit/mL (3 20 - 22 unit SQ HS 04/12/21 04/12/21 History mL) subcutaneous pen (Basaglar KwikPen U-100 Insulin) lamotrigine 50 mg disintegrating 50 mg PO QAM 04/12/21 04/12/21 History tablet levothyroxine 50 mcg tablet 50 mcg PO DAILYBB 04/12/21 04/12/21 History liraglutide 0.6 mg/0.1 mL (18 mg/3 1.8 mg SQ HS 04/12/21 04/12/21 History mL) subcutaneous pen injector (Victoza 3-Jose) lithium carbonate 150 mg capsule 150 mg PO HS 04/12/21 04/12/21 History omeprazole 20 mg capsule,delayed 20 mg PO QAM 04/12/21 04/12/21 History release Past Med/Surg History Medical History (Updated 04/12/21 @ 12:32 by Shahzad Reeves MD) Anemia Bipolar I disorder, most recent episode (or current) manic Chronic kidney disease, stage III (moderate) Colostomy present Dyslipidemia Essential hypertension First degree AV block GERD without esophagitis Hypothyroidism Loss of protective sensation of skin of foot Obesity (BMI 30-39.9) Peripheral neuropathy Schizoaffective disorder Stage 3b chronic kidney disease Type 2 diabetes mellitus Type 2 diabetes mellitus with chronic kidney disease, with long-term current use of insulin Vitamin D deficiency Surgical History (Updated 04/12/21 @ 11:49 by Shahzad Reeves MD) H/O colectomy (09/2011) Total Colectomy w/ Proctectomy, ileostomy, September 2011. Secondary to Cdiff/abscess History of tracheostomy S/P cataract surgery S/P eye surgery 2 retinal sx on L eye 1 on R eye S/P tooth extraction Family History Brother Myocardial infarction Coronary heart disease Father Congestive heart failure Diabetes Mother Coronary heart disease Denies family history of Ovarian cancer Prostate cancer Breast cancer Colorectal cancer Social History Smoking Status: Current every day smoker Tobacco Type: Cigarettes packs per day: 1; Hx Alcohol Use: No Hx Substance Use: No Preferred Language: Tajik Communication Ability: Effective Visual Impairment: Blindness Hearing Ability: Normal Beliefs That Will Affect Care: None marital status: Current Living Situation: Spouse current occupational status: retired 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 ) during the past year weight has: remained stable Dental Care, Regularly: No Physical Activity Frequency: Daily Physical Activity Frequency Comment: walk Seatbelt Use: always Sunscreen Use: Yes Review of Systems Review of Systems: confusion and moderate distress and fatigue no headache, no visual changes no speech or swallowing issues c/o dry mouth no chest pain, pressure or palpitations shortness of breath and productive cough no abdominal pain, nausea or vomiting, colostomy is functioning well no focal joint pain mild LE swelling no back pain, CVA tenderness or radicular pain no bruising, bleeding or rashes no focal signs of weakness or numbness or altered sensation no complaints of anxiety or depression seems mental health issue is controlled.. Physical Exam Physical Exam: The patient appeared weakened and dehydrated Vital signs as documented. Head exam is normocephalic atraumatic, Neck is without JVD, thyromegaly, or carotid bruits. former tracheostomy scar on anterior neck Lungs are rales left base, coarse cough, clear mucus Cardiac exam, Rhythm is regular.. No murmurs, rubs or gallops. Abdominal exam reveals normal bowel sounds, soft non tender, ventral hermia, rlq colostomy Extremities are trace edematous and both pedal pulses are present Neurologic exam is alert and oriented, no focal loss of strength or sensation Skin is without bruises or rashes Psychologically is without concerns for anxiety or depression Results & Data Results & Data ([facility]) Vital Signs (Past 12 Hours) Vital Signs Temp Pulse Resp BP Pulse Ox 04/12/21 11:30 81 24 127/56 L 94 04/12/21 11:00 75 22 107/61 93 04/12/21 10:39 99.7 F H 73 20 127/56 L 93 04/12/21 10:30 75 22 127/56 L 94 04/12/21 10:00 83 20 04/12/21 09:30 82 24 04/12/21 09:22 82 22 92 Diagnostic Findings Chest x-ray 04/12/2021 shows left midlung and left basilar airspace opacities CT head 04/12/2021 noncontrast shows no acute intercranial abnormality or calvarial fracture ECG Additional Comments: EKG shows sinus rhythm Code Status & VTE Plan VTE Prophylaxis Plan VTE Prophylaxis will be ordered: Yes PG Care Time/CCT Total # of Minutes Spent Total Time Spent with Patient: Total time spent is greater than 50% in coordination of care (as documented) at patient's floor/unit and/or counseling patient: Coding Level of Care Code 42484 Initial Inpt Care Lvl 3 Diagnoses Pneumonia due to 2019 novel coronavirus U07.1; J12.82 DINORAH (acute kidney injury) N17.9 Obesity (BMI 30-39.9) E66.9 Anemia D64.9 Type 2 diabetes mellitus with chronic kidney disease, with long-term current use of insulin E11.22; Z79.4 Essential hypertension I10 Dyslipidemia E78.5 DVT prophylaxis Z29.9 Bipolar I disorder, most recent episode (or current) manic F31.10 Fall W19.XXXA Colostomy present Z93.3
--- NOTE | 2021-04-12 12:25 | Electrocardiogram Report ---
Test Reason : Blood Pressure : / mmHG Vent. Rate : 079 BPM Atrial Rate : 079 BPM P-R Int : 192 ms QRS Dur : 100 ms QT Int : 378 ms P-R-T Axes : 044 025 056 degrees QTc Int : 433 ms Normal sinus rhythm Low voltage QRS Borderline ECG When compared with ECG of 13-JUN-2004 05:13, Sinus rhythm has replaced Ectopic atrial rhythm Confirmed by Mickey Swartz ([id number]) on 04/12/2021 12:24:50 PM Referred By: REFERRED SELF Confirmed By:Mickey Swartz
[2021-04-12] MEDS ORDERED: DEXTROSE 50% 50 ML SYRINGE IV PRN (14:54)
[2021-04-12] MEDS ORDERED: ALUMINUM/MAGNESIUM SUSP 30 ML UDC PO PRN (14:54)
[2021-04-12] MEDS ORDERED: GLUCOSE 10 TABS/TUBE PO PRN (14:54)
[2021-04-12] MEDS ORDERED: GLUCOSE 40% GEL 15 GM TUBE PO PRN (14:54)
[2021-04-12] MEDS ORDERED: GLUCAGON FOR INJ 1 MG VIAL SQ PRN (14:54)
[2021-04-12] MEDS ORDERED: CARBOHYDRATES FOR HYPOGLYCEMIA PO PRN (14:54)
[2021-04-12] MEDS ORDERED: ACETAMINOPHEN 500 MG TAB PO PRN (14:54)
[2021-04-12] MEDS ORDERED: ONDANSETRON INJ 2 MG/ML 2 ML VIAL IV PRN (14:54)
[2021-04-12] MEDS ORDERED: AZITHROMYCIN 500 MG in DEXTROSE 5% 250 ML IV ONE (16:00)
[2021-04-12] MEDS: INSULIN ASPART 100 UNITS/ML 3 ML PEN SC SCH ×2 (17:23→21:34)
[2021-04-12] MEDS ORDERED: LITHIUM CARBONATE 300 MG TAB PO SCH (21:00)
[2021-04-12] MEDS: ENOXAPARIN 80 MG/0.8 ML SYR SQ SCH (21:13)
[2021-04-12] MEDS: guaiFENesin 600 MG TABCR PO SCH (21:19)
[2021-04-12] MEDS: QUEtiapine FUMARATE 300 MG TABLET PO SCH (21:43)
[2021-04-13 04:43] LABS: Appearance Urine Clear (Clear); Bacteria Urine Automated Negative (Negative); Bilirubin Urine Negative (Negative); Blood Urine Trace (Negative); Color Urine Yellow; Epithelial Cell Urine Auto 0-5 /lpf (0-5); Glucose Urine UA 3+ (Negative); Ketones Urine Negative (Negative); Leukocyte Esterase Urine Negative (Negative); Nitrite Urine Negative (Negative); Protein Urine 1+ (Negative); RBC Urine Automated 0-4 /hpf (0-4); Specific Gravity Urine 1.024 (1.000-1.030); Urobilinogen Urine Negative (Negative); pH Urine 5.5 (4.5-7.5)
[2021-04-13] MEDS: LEVOTHYROXINE SODIUM 50 MCG TABLET PO SCH (06:09)
[2021-04-13 07:37] LABS: Estimated Average Glucose 177 mg/dl; Hemoglobin A1C 7.8 % (4.5-5.6)
[2021-04-13] MEDS ORDERED: DEXAMETHASONE SOD INJ 4 MG/ML VIAL ONE (08:00)
[2021-04-13] MEDS: INSULIN ASPART 100 UNITS/ML 3 ML PEN SC SCH ×4 (08:10→20:30)
[2021-04-13] MEDS: ENOXAPARIN 80 MG/0.8 ML SYR SQ SCH ×2 (08:13→20:30)
[2021-04-13] MEDS: dexAMETHasone 6 MG in SYRINGE 0 ML IV SCH (08:15)
[2021-04-13] MEDS: INSULIN HUMAN NPH SC SCH (08:16)
[2021-04-13] MEDS: INSULIN GLARGINE SOLOSTAR 100 UNITS/ML 3 ML PEN SQ SCH (08:17)
[2021-04-13] MEDS: ZINC SULFATE 220 MG CAPSULE PO SCH (08:17)
[2021-04-13] MEDS: lamoTRIgine 25 MG TAB PO SCH (08:18)
[2021-04-13] MEDS: PANTOprazole 40 MG TAB PO SCH (08:18)
[2021-04-13] MEDS: AZITHROMYCIN 250 MG TAB PO SCH (08:19)
[2021-04-13] MEDS: guaiFENesin 600 MG TABCR PO SCH ×2 (08:19→20:33)
[2021-04-13] MEDS: CYANOCOBALAMIN 500 MCG TABLET (VITAMIN B-12) PO SCH (08:19)
[2021-04-13] MEDS: ATORVASTATIN 20 MG TAB PO SCH (08:20)
[2021-04-13] MEDS: ASPIRIN 81 MG ECTAB PO SCH (08:20)
--- NOTE | 2021-04-13 19:58 | Hospitalist Progress Note ---
Date of Service April 13, 2021 Assessment & Plan (1) Pneumonia due to 2019 novel coronavirus: Plan: Patient with an infiltrate seen in the left lung. Patient is not hypoxic patient is febrile. Patient does not qualify for remdesivir due to lack of hypoxemia. Patient be given dexamethasone. Be on airborne isolation Patient likely with some metabolic encephalopathy on presentation secondary to his Covid infection however this could also be toxic encephalopathy if his lithium level comes back supra therapeutic this is pending at the time of admission Due to the lobar nature of the infiltrate seen azithromycin was begun will be continued p.o. additionally Mucinex was also ordered On day 2, patient continues on corticosteroids. will hold off remdesevir. (2) DINORAH (acute kidney injury): Plan: Acute kidney injury with history of chronic kidney disease stage III attributed to his diabetes and hypertension. Patient was given intravenous fluids in the emergency department be continued on low rate normal saline overnight. BRANDI inhibitor will be held Due to his acute kidney injury his lithium will be held which is usually to treat his schizoaffective disorder and level will be sent attention needs to be paid for this to be restarted at the appropriate time and perhaps pharmacy consulted for dose adjustments (3) Type 2 diabetes mellitus with chronic kidney disease, with long-term current use of insulin: Plan: Patient with history of type 2 diabetes usually using glargine Victoza and Metformin at home. The glargine to be continued Victoza Metformin held patient be given sliding scale insulin and started on NPH insulin to also counteract the effects of his dexamethasone. The patient will have an A1c checked and be on a diabetic diet (4) Essential hypertension: Plan: Typically having essential hypertension treated with lisinopril 5 this is held due to his DINORAH we will follow his blood pressures (5) Dyslipidemia: Plan: Atorvastatin is maintained for his dyslipidemia and secondary disease prevention with his diabetes (6) Bipolar I disorder, most recent episode (or current) manic: Plan: lithium held due to acute kidney injury and concern for possible toxic encephalopathy, level pending on admission, continue quetiapine and lamotrigine, reduce quetiapine dose due to confusion (7) Anemia: Plan: Patient has anemia of chronic disease hemoglobin is 11 on admission this is slightly lower than his typical home range. (8) Obesity (BMI 30-39.9): Plan: Patient has body weight of 279 a BMI of 38 this places him at higher risk for Covid morbidity (9) DVT prophylaxis: Plan: Patient we will put on 0.5 mg/kg subcu Lovenox twice daily for Covid DVT prevention (10) Fall: Plan: Patient had a fall at home likely from weakness from deconditioning and dehydration from COVID PT OT evaluation be undertaken (11) Colostomy present: Plan: Patient's colostomy is well functioning reportedly it was after a total colectomy secondary to a C. difficile infection. We will have ostomy team evaluate his site Admission and Anticipated Discharge Date Admission Date: April 12, 2021 Subjective 71 yo male reports feeling well. He is not having problems breathing. Review of Systems Review of Systems: All systems reviewed & are unremarkable except as noted in HPI & below Physical Exam Physical Exam: The patient appeared weakened and dehydrated Vital signs as documented. Head exam is normocephalic atraumatic, Neck is without JVD, thyromegaly, or carotid bruits. former tracheostomy scar on anterior neck Lungs are rales left base, coarse cough, clear mucus Cardiac exam, Rhythm is regular.. No murmurs, rubs or gallops. Abdominal exam reveals normal bowel sounds, soft non tender, ventral hermia, rlq colostomy Extremities are trace edematous and both pedal pulses are present Neurologic exam is alert and oriented, no focal loss of strength or sensation Skin is without bruises or rashes Psychologically is without concerns for anxiety or depression Results & Data Results & Data ([facility]) Vital Signs (Past 12 Hours) Vital Signs Temp Pulse Resp BP Pulse Ox 04/13/21 19:20 36.8 C 63 20 124/59 L 96 04/13/21 16:50 97 H 04/13/21 16:42 37.0 C 66 18 120/67 91 04/13/21 12:29 69 24 116/51 L 95 04/13/21 08:40 37.1 C 78 28 H 121/60 94 PG Care Time/CCT Total # of Minutes Spent Total Time Spent with Patient: Total time spent is greater than 50% in coordination of care (as documented) at patient's floor/unit and/or counseling patient: Coding Level of Care Code 76906 Subseq Hosp Care Lvl 2 Diagnoses Pneumonia due to 2019 novel coronavirus U07.1; J12.82 DINORAH (acute kidney injury) N17.9 Type 2 diabetes mellitus with chronic kidney disease, with long-term current use of insulin E11.22; Z79.4 Essential hypertension I10 Dyslipidemia E78.5 Bipolar I disorder, most recent episode (or current) manic F31.10 Anemia D64.9 Obesity (BMI 30-39.9) E66.9 DVT prophylaxis Z29.9 Fall W19.XXXA Colostomy present Z93.3
[2021-04-13] MEDS: QUEtiapine FUMARATE 300 MG TABLET PO SCH (20:33)
[2021-04-14] MEDS ORDERED: ALBUT/IPRATROP 3MG/0.5MG NEB 3 ML VIAL NEB STA (00:42)
[2021-04-14 02:09] LABS: Allen Test Pos (Pos); Base Excess ABG -4.3 mEq/L (-9-1.8); HCO3 ABG 18 mmol/L (19-24); PCO2 ABG 26 mmHg (35-46); PO2 ABG 69 mmHg (80-95); pH ABG 7.47 (7.35-7.45)
--- NOTE | 2021-04-14 04:59 | Communication Note ---
Date of Service: April 14, 2021 Notified by nursing that patient was getting progressively more combative/restless and confused. Repeatedly trying to empty his colostomy bag even though he had just done so, taking off his oxygen and pulse ox. AB.47, pCO2: 26, pO2: 69, HCO3: 18, O2: 95.0, Base Excess: -4.3 Vitals: 106/36, HR 70, RR 30s, O2 97% on 3L Treated with Duoneb x1, albuterol HFA scheduled QID. Patient assessed at bedside: short and usp memory impairment. somewhat oriented. Remembered birthday but acknowledged that he didn't know it 2 days ago, knew he was in [employer] but thought he was in the [facility] building across the street from the hospital, knew it was 2020 but not month or season. Hx 1/2 ppd x 50 years smoking, denies alcohol use hx. Likely COPD/underlying lung disease causing wheezing on exam; inhaler initiated as above. May benefit from addition of daily ipratropium inhaler as well. Confusion appears to be COVID encephalopathy at this time, waxing and waning. No s/sx of stroke or metabolic encephalopathy. Notably patient is on lithium at home, but lithium level on admission was low, and held due to DINORAH.
[2021-04-14] MEDS: ALBUTEROL HFA 8 GM INHALER INH SCH ×4 (06:03→19:41)
[2021-04-14] MEDS: LEVOTHYROXINE SODIUM 50 MCG TABLET PO SCH (06:48)
[2021-04-14] MEDS: INSULIN HUMAN NPH SC SCH (08:00)
[2021-04-14] MEDS: INSULIN GLARGINE SOLOSTAR 100 UNITS/ML 3 ML PEN SQ SCH (08:00)
[2021-04-14] MEDS: INSULIN ASPART 100 UNITS/ML 3 ML PEN SC SCH ×4 (08:00→21:00)
[2021-04-14] MEDS: AZITHROMYCIN 250 MG TAB PO SCH (08:05)
[2021-04-14] MEDS: ATORVASTATIN 20 MG TAB PO SCH (08:05)
[2021-04-14] MEDS: ASPIRIN 81 MG ECTAB PO SCH (08:05)
[2021-04-14] MEDS: dexAMETHasone 6 MG in SYRINGE 0 ML IV SCH (08:06)
[2021-04-14] MEDS: ENOXAPARIN 80 MG/0.8 ML SYR SQ SCH ×2 (08:06→20:44)
[2021-04-14] MEDS: guaiFENesin 600 MG TABCR PO SCH ×2 (08:06→20:44)
[2021-04-14] MEDS: CYANOCOBALAMIN 500 MCG TABLET (VITAMIN B-12) PO SCH (08:06)
[2021-04-14] MEDS: PANTOprazole 40 MG TAB PO SCH (08:07)
[2021-04-14] MEDS: ZINC SULFATE 220 MG CAPSULE PO SCH (08:07)
[2021-04-14 08:08] LABS: Hemoglobin 9.7 g/dL (14.0-18.0); Mean Corpuscular Hemoglobin 33.3 pg (25-34); Mean Corpuscular Hgb Conc 34.6 g/dL (32-36); Mean Corpuscular Volume 96.2 fL (80-100); Mean Platelet Volume 11.4 fL (7.4-10.4); Platelet Count 112 K/uL (130-400); RDW Coefficient of Variation 13.2 % (11.5-14.5); RDW Standard Deviation 46.4 fL (36.4-46.3); Red Blood Count 2.91 M/uL (4.7-6.1); White Blood Count 5.19 K/uL (4.8-10.8)
[2021-04-14 08:46] LABS: BUN Creatinine Ratio 20.3 (10-20); Creatinine Clr Calc Pharmacy 51.4 ml/min; Est GFR (African American) 42.1 ml/min; Est GFR (Non-African American) 36.3 ml/min; Potassium 4.5 mmol/L (3.5-5.1)
[2021-04-14] MEDS: lamoTRIgine 25 MG TAB PO SCH (08:54)
[2021-04-14] MEDS: QUEtiapine FUMARATE 300 MG TABLET PO SCH (20:44)
--- NOTE | 2021-04-14 21:09 | Hospitalist Progress Note ---
Date of Service April 14, 2021 Assessment & Plan (1) Pneumonia due to 2019 novel coronavirus: Plan: Patient with an infiltrate seen in the left lung. Patient is not hypoxic patient is febrile. Patient does not qualify for remdesivir due to lack of hypoxemia. Patient be given dexamethasone. Be on airborne isolation Patient likely with some metabolic encephalopathy on presentation secondary to his Covid infection however this could also be toxic encephalopathy if his lithium level comes back supra therapeutic this is pending at the time of admission Due to the lobar nature of the infiltrate seen azithromycin was begun will be continued p.o. additionally Mucinex was also ordered On day 3, patient continues on corticosteroids. will hold off remdesevir. will hold off discharge. Patient has been suffering from covid encephalopathy in the evening. Will continue to monitor. will repeat PT eval (2) DINORAH (acute kidney injury): Plan: Acute kidney injury with history of chronic kidney disease stage III attributed to his diabetes and hypertension. Patient was given intravenous fluids in the emergency department be continued on low rate normal saline overnight. BRANDI inhibitor will be held Due to his acute kidney injury his lithium will be held which is usually to treat his schizoaffective disorder and level will be sent attention needs to be paid for this to be restarted at the appropriate time and perhaps pharmacy consulted for dose adjustments (3) Type 2 diabetes mellitus with chronic kidney disease, with long-term current use of insulin: Plan: Patient with history of type 2 diabetes usually using glargine Victoza and Metformin at home. The glargine to be continued Victoza Metformin held patient be given sliding scale insulin and started on NPH insulin to also counteract the effects of his dexamethasone. The patient will have an A1c checked and be on a diabetic diet (4) Essential hypertension: Plan: Typically having essential hypertension treated with lisinopril 5 this is held due to his DINORAH we will follow his blood pressures (5) Dyslipidemia: Plan: Atorvastatin is maintained for his dyslipidemia and secondary disease prevention with his diabetes (6) Bipolar I disorder, most recent episode (or current) manic: Plan: lithium held due to acute kidney injury and concern for possible toxic encephalopathy, level pending on admission, continue quetiapine and lamotrigine, reduce quetiapine dose due to confusion (7) Anemia: Plan: Patient has anemia of chronic disease hemoglobin is 11 on admission this is slightly lower than his typical home range. (8) Obesity (BMI 30-39.9): Plan: Patient has body weight of 279 a BMI of 38 this places him at higher risk for Covid morbidity (9) DVT prophylaxis: Plan: Patient we will put on 0.5 mg/kg subcu Lovenox twice daily for Covid DVT prevention (10) Fall: Plan: Patient had a fall at home likely from weakness from deconditioning and dehydration from COVID PT OT evaluation be undertaken (11) Colostomy present: Plan: Patient's colostomy is well functioning reportedly it was after a total colectomy secondary to a C. difficile infection. We will have ostomy team evaluate his site Admission and Anticipated Discharge Date Admission Date: April 12, 2021 Subjective 71 yo m reports having fever, chills. Review of Systems Review of Systems: All systems reviewed & are unremarkable except as noted in HPI & below Physical Exam Physical Exam: The patient appeared weakened and dehydrated Vital signs as documented. Head exam is normocephalic atraumatic, Neck is without JVD, thyromegaly, or carotid bruits. former tracheostomy scar on anterior neck Lungs are rales left base, coarse cough, clear mucus, using accesory muscles Cardiac exam, Rhythm is regular.. No murmurs, rubs or gallops. Abdominal exam reveals normal bowel sounds, soft non tender, ventral hermia, rlq colostomy Extremities are trace edematous and both pedal pulses are present Neurologic exam is alert and oriented, no focal loss of strength or sensation Skin is without bruises or rashes Psychologically is without concerns for anxiety or depression Results & Data Results & Data ([facility]) Vital Signs (Past 12 Hours) Vital Signs Temp Pulse Pulse Pulse Resp BP Pulse Ox 04/14/21 19:00 36.9 C 81 20 130/52 L 96 04/14/21 18:01 37.1 C 04/14/21 16:09 59 L 18 95 04/14/21 16:00 37.9 C H 61 74 16 148/61 H 93 04/14/21 14:02 04/14/21 13:02 36.9 C 68 20 96/52 L 96 04/14/21 11:12 86 18 95 Pulse Ox Pulse Ox Pulse Ox 04/14/21 19:00 04/14/21 18:01 04/14/21 16:09 04/14/21 16:00 04/14/21 14:02 93 93 89 L 04/14/21 13:02 04/14/21 11:12 PG Care Time/CCT Total # of Minutes Spent Total Time Spent with Patient: Total time spent is greater than 50% in coordination of care (as documented) at patient's floor/unit and/or counseling patient: Coding Level of Care Code 23805 Subseq Hosp Care Lvl 2 Diagnoses Pneumonia due to 2019 novel coronavirus U07.1; J12.82 DINORAH (acute kidney injury) N17.9 Type 2 diabetes mellitus with chronic kidney disease, with long-term current use of insulin E11.22; Z79.4 Essential hypertension I10 Dyslipidemia E78.5 Bipolar I disorder, most recent episode (or current) manic F31.10 Anemia D64.9 Obesity (BMI 30-39.9) E66.9 DVT prophylaxis Z29.9 Fall W19.XXXA Colostomy present Z93.3 Time Spent (min) 25
[2021-04-15] MEDS: ALBUTEROL HFA 8 GM INHALER INH SCH (05:56)
[2021-04-15] MEDS: LEVOTHYROXINE SODIUM 50 MCG TABLET PO SCH (06:18)
[2021-04-15] MEDS: ATORVASTATIN 20 MG TAB PO SCH (08:29)
[2021-04-15] MEDS: lamoTRIgine 25 MG TAB PO SCH (08:29)
[2021-04-15] MEDS: AZITHROMYCIN 250 MG TAB PO SCH (08:29)
[2021-04-15] MEDS: ASPIRIN 81 MG ECTAB PO SCH (08:29)
[2021-04-15] MEDS: INSULIN ASPART 100 UNITS/ML 3 ML PEN SC SCH ×4 (08:30→22:29)
[2021-04-15] MEDS: INSULIN HUMAN NPH SC SCH (08:30)
[2021-04-15] MEDS: PANTOprazole 40 MG TAB PO SCH (08:30)
[2021-04-15] MEDS: guaiFENesin 600 MG TABCR PO SCH ×2 (08:30→21:17)
[2021-04-15] MEDS: INSULIN GLARGINE SOLOSTAR 100 UNITS/ML 3 ML PEN SQ SCH (08:30)
[2021-04-15] MEDS: ZINC SULFATE 220 MG CAPSULE PO SCH (08:31)
[2021-04-15] MEDS: ENOXAPARIN 80 MG/0.8 ML SYR SQ SCH ×2 (08:31→21:17)
[2021-04-15] MEDS: dexAMETHasone 6 MG in SYRINGE 0 ML IV SCH (08:56)
[2021-04-15 09:08] LABS: Hematocrit (blood only) 32.5 % (42-52); Hemoglobin 11.1 g/dL (14.0-18.0); Mean Corpuscular Hemoglobin 33.3 pg (25-34); Mean Corpuscular Hgb Conc 34.2 g/dL (32-36); Mean Corpuscular Volume 97.6 fL (80-100); Mean Platelet Volume 11.7 fL (7.4-10.4); Platelet Count 150 K/uL (130-400); RDW Coefficient of Variation 13.2 % (11.5-14.5); RDW Standard Deviation 46.7 fL (36.4-46.3); Red Blood Count 3.33 M/uL (4.7-6.1); White Blood Count 6.33 K/uL (4.8-10.8)
[2021-04-15 09:20] LABS: D Dimer 1000 ug/L FEU (0-500)
[2021-04-15] MEDS ORDERED: ALBUTEROL HFA 8 GM INHALER INH PRN (09:35)
[2021-04-15 09:44] LABS: BUN Creatinine Ratio 18.3 (10-20); Calcium 8.8 mg/dl (8.5-10.1); Creatinine Clr Calc Pharmacy 49.8 ml/min; Est GFR (African American) 41.2 ml/min; Est GFR (Non-African American) 35.6 ml/min; Potassium 4.2 mmol/L (3.5-5.1)
[2021-04-15 09:46] LABS: C Reactive Protein 6.41 mg/dl (0-0.29)
[2021-04-15] MEDS: CYANOCOBALAMIN 500 MCG TABLET (VITAMIN B-12) PO SCH (13:37)
--- NOTE | 2021-04-15 17:48 | XRay Report ---
XR chest 1V portable HISTORY: 71 years-old Male sob acute shortness of breath COMPARISON: Chest radiograph 04/12/2021 TECHNIQUE: Portable AP view of the chest FINDINGS: Cardiac silhouette is enlarged. Unchanged mild prominence of the brooke. No pneumothorax or large pleur al effusion. Left basilar and left midlung airspace opacities are again noted which appears slightly progressed. Degenerative changes of the shoulders and spine. IMPRESSION: Cardiomegaly with slightly progressed left lung airspace opacities suggestive of pneumoni a. ACT 112: Negative or not required by law. The above report was generated using voice recognition software. It may contain grammatical, syntax o r spelling errors. Electronically signed by: Robert Dennison M.D. 04/15/2021 5:47 PM
[2021-04-15] MEDS: LACTATED RINGER'S 1,000 ML IV SCH (18:13)
--- NOTE | 2021-04-15 20:50 | Hospitalist Progress Note ---
Date of Service April 15, 2021 Assessment & Plan (1) Pneumonia due to 2019 novel coronavirus: Plan: Patient with an infiltrate seen in the left lung. Patient is not hypoxic patient is febrile. Patient does not qualify for remdesivir due to lack of hypoxemia. Patient be given dexamethasone. Be on airborne isolation Patient likely with some metabolic encephalopathy on presentation secondary to his Covid infection however this could also be toxic encephalopathy if his lithium level comes back supra therapeutic this is pending at the time of admission Due to the lobar nature of the infiltrate seen azithromycin was begun will be continued p.o. additionally Mucinex was also ordered On day 4, patient continues on corticosteroids. will hold off remdesevir. will hold off discharg as patient has DINORAH. WILL PLACE ON IVF Patient has been suffering from covid encephalopathy in the evening. Will continue to monitor. improved PT eval: may go home. (2) DINORAH (acute kidney injury): Plan: Acute kidney injury with history of chronic kidney disease stage III attributed to his diabetes and hypertension. Patient was given intravenous fluids in the emergency department be continued on low rate normal saline overnight. BRANDI inhibitor will be held Due to his acute kidney injury his lithium will be held which is usually to treat his schizoaffective disorder and level will be sent attention needs to be paid for this to be restarted at the appropriate time and perhaps pharmacy consulted for dose adjustments cont IVF. (3) Type 2 diabetes mellitus with chronic kidney disease, with long-term current use of insulin: Plan: Patient with history of type 2 diabetes usually using glargine Victoza and Metformin at home. The glargine to be continued Victoza Metformin held patient be given sliding scale insulin and started on NPH insulin to also counteract the effects of his dexamethasone. The patient will have an A1c checked and be on a diabetic diet (4) Essential hypertension: Plan: Typically having essential hypertension treated with lisinopril 5 this is held due to his DINORAH we will follow his blood pressures (5) Dyslipidemia: Plan: Atorvastatin is maintained for his dyslipidemia and secondary disease prevention with his diabetes (6) Bipolar I disorder, most recent episode (or current) manic: Plan: lithium held due to acute kidney injury and concern for possible toxic encephalopathy, level pending on admission, continue quetiapine and lamotrigine, reduce quetiapine dose due to confusion (7) Anemia: Plan: Patient has anemia of chronic disease hemoglobin is 11 on admission this is slightly lower than his typical home range. (8) Obesity (BMI 30-39.9): Plan: Patient has body weight of 279 a BMI of 38 this places him at higher risk for Covid morbidity (9) DVT prophylaxis: Plan: Patient we will put on 0.5 mg/kg subcu Lovenox twice daily for Covid DVT prevention (10) Fall: Plan: Patient had a fall at home likely from weakness from deconditioning and dehydration from COVID PT OT evaluation be undertaken (11) Colostomy present: Plan: Patient's colostomy is well functioning reportedly it was after a total colectomy secondary to a C. difficile infection. We will have ostomy team evaluate his site Admission and Anticipated Discharge Date Admission Date: April 12, 2021 Subjective Patient reports breathing better. Review of Systems Review of Systems: All systems reviewed & are unremarkable except as noted in HPI & below Physical Exam Physical Exam: The patient appeared weakened and dehydrated Vital signs as documented. Head exam is normocephalic atraumatic, Neck is without JVD, thyromegaly, or carotid bruits. former tracheostomy scar on anterior neck Lungs are rales left base, coarse cough, clear mucus, using accesory muscles Cardiac exam, Rhythm is regular.. No murmurs, rubs or gallops. Abdominal exam reveals normal bowel sounds, soft non tender, ventral hermia, rlq colostomy Extremities are trace edematous and both pedal pulses are present Neurologic exam is alert and oriented, no focal loss of strength or sensation Skin is without bruises or rashes Psychologically is without concerns for anxiety or depression Results & Data Results & Data ([facility]) Vital Signs (Past 12 Hours) Vital Signs Temp Pulse Pulse Resp BP Pulse Ox 04/15/21 20:07 36.9 C 54 L 22 120/63 95 04/15/21 16:02 36.7 C 54 L 20 130/49 L 95 04/15/21 11:46 37.2 C 58 L 22 91/51 L 95 PG Care Time/CCT Total # of Minutes Spent Total Time Spent with Patient: Total time spent is greater than 50% in coordination of care (as documented) at patient's floor/unit and/or counseling patient: Coding Level of Care Code 58144 Subseq Hosp Care Lvl 2 Diagnoses Pneumonia due to 2019 novel coronavirus U07.1; J12.82 DINORAH (acute kidney injury) N17.9 Type 2 diabetes mellitus with chronic kidney disease, with long-term current use of insulin E11.22; Z79.4 Essential hypertension I10 Dyslipidemia E78.5 Bipolar I disorder, most recent episode (or current) manic F31.10 Anemia D64.9 Obesity (BMI 30-39.9) E66.9 DVT prophylaxis Z29.9 Fall W19.XXXA Colostomy present Z93.3
[2021-04-15] MEDS: QUEtiapine FUMARATE 300 MG TABLET PO SCH (21:17)
[2021-04-16] MEDS ORDERED: MELATONIN 3 MG TAB PO ONE (02:06)
[2021-04-16] MEDS: LEVOTHYROXINE SODIUM 50 MCG TABLET PO SCH (06:12)
[2021-04-16] MEDS: LACTATED RINGER'S 1,000 ML IV SCH (08:50)
[2021-04-16 09:17] LABS: Hematocrit (blood only) 33.3 % (42-52); Hemoglobin 11.5 g/dL (14.0-18.0); Mean Corpuscular Hemoglobin 33.2 pg (25-34); Mean Corpuscular Hgb Conc 34.5 g/dL (32-36); Mean Corpuscular Volume 96.2 fL (80-100); Mean Platelet Volume 11.5 fL (7.4-10.4); Platelet Count 173 K/uL (130-400); RDW Coefficient of Variation 13.1 % (11.5-14.5); RDW Standard Deviation 46.4 fL (36.4-46.3); Red Blood Count 3.46 M/uL (4.7-6.1); White Blood Count 5.44 K/uL (4.8-10.8)
[2021-04-16] MEDS: ASPIRIN 81 MG ECTAB PO SCH (09:27)
[2021-04-16] MEDS: AZITHROMYCIN 250 MG TAB PO SCH (09:27)
[2021-04-16] MEDS: CYANOCOBALAMIN 500 MCG TABLET (VITAMIN B-12) PO SCH (09:27)
[2021-04-16] MEDS: PANTOprazole 40 MG TAB PO SCH (09:28)
[2021-04-16] MEDS: lamoTRIgine 25 MG TAB PO SCH (09:28)
[2021-04-16] MEDS: ZINC SULFATE 220 MG CAPSULE PO SCH (09:28)
[2021-04-16] MEDS: ATORVASTATIN 20 MG TAB PO SCH (09:29)
[2021-04-16] MEDS: guaiFENesin 600 MG TABCR PO SCH (09:29)
[2021-04-16] MEDS: INSULIN GLARGINE SOLOSTAR 100 UNITS/ML 3 ML PEN SQ SCH (09:29)
[2021-04-16] MEDS: ENOXAPARIN 80 MG/0.8 ML SYR SQ SCH (09:29)
[2021-04-16] MEDS: INSULIN ASPART 100 UNITS/ML 3 ML PEN SC SCH ×3 (09:31→17:13)
[2021-04-16] MEDS: INSULIN HUMAN NPH SC SCH (09:32)
[2021-04-16] MEDS: dexAMETHasone 6 MG in SYRINGE 0 ML IV SCH (09:35)
[2021-04-16 09:42] LABS: BUN Creatinine Ratio 20.6 (10-20); Calcium 8.9 mg/dl (8.5-10.1); Creatinine Clr Calc Pharmacy 57.8 ml/min; Est GFR (African American) 49.9 ml/min; Est GFR (Non-African American) 43.1 ml/min; Potassium 4.1 mmol/L (3.5-5.1)
[2021-04-16] MEDS ORDERED: LACTATED RINGER'S 1,000 ML IV SCH (12:15)
--- NOTE | 2021-04-16 13:09 | XRay Report ---
XR chest 1V portable CLINICAL HISTORY: PNA TECHNIQUE: Single frontal radiograph of the chest was obtained. Comparison: Comparison is made to chest one view 04/15/2021 FINDINGS: No lines and tubes are seen. The cardiomediastinal silhouette is normal. Unchanged appearance of left lower lung predominant airspace opacities. No evidence of pleural effusion or pneumothorax. IMPRESSION: Redemonstration of left lower lung predominant airspace opacities. ACT 112: Negative or not required by law. Electronically signed by: Ghassan Holcomb M.D. 04/16/2021 1:08 PM
--- NOTE | 2021-04-19 20:20 | Discharge Summary ---
Date of Service April 16, 2021 Admission HPI Per Admitting Provider Patient presents due to concern for shortness of breath which is been ongoing for the last several days although seem to be acutely worse 04/12 with associated pre hospital covid + test, confusion and acute kidney injury. The patient is positive for Covid in the ER 04/12/21.The patient stated that he was unvaccinated confirmed by his . Patient did have a temperature of 37 7. Patient is a smoker. Patient reportedly had a pulse ox in the 80s prior to arrival per but not per EMS. the pt has CXR changes consistent with pneumonia At home the patient did have a fall out of bed without apparent injury and negative CT of head in the ER. . Patient does take baby aspirin but does not take any other blood thinning medications. The patient denies any chest pains or pains anywhere else. . The pt appears clinically dehydrated and has acute kidney injury with h/o CKD3. Patient's BSG was greater than 300. Principal Diagnosis COVID 19 pneumonia Discharge Exam The patient appeared well and comfortable. Vital signs as documented. Head exam is normocephalic atraumatic, Neck is without JVD, thyromegaly, or carotid bruits. former tracheostomy scar on anterior neck Lungs are clear, no longer using accessory muscles to breath Cardiac exam, Rhythm is regular.. No murmurs, rubs or gallops. Abdominal exam reveals normal bowel sounds, soft non tender, ventral hermia, rlq colostomy Extremities are trace edematous and both pedal pulses are present Neurologic exam is alert and oriented, no focal loss of strength or sensation Skin is without bruises or rashes Psychologically is without concerns for anxiety or depression Discharge Data Allergies Allergy/AdvReac Type Severity Reaction Status Date / Time adhesive tape Allergy Verified 04/12/21 11:32 latex Allergy Verified 04/12/21 11:32 No Known Drug Allergies Allergy Verified 04/12/21 11:32 Consultations 04/12/21 11:23 ED Decision to Admit Stat Ordered Studies 04/12/21 09:31 CT head/brain wo con Stat Hospital Course (1) Pneumonia due to 2019 novel coronavirus: Patient with an infiltrate seen in the left lung. Patient is not hypoxic patient is febrile. Patient does not qualify for remdesivir due to lack of hypoxemia. Patient be given dexamethasone. Be on airborne isolation Patient likely with some metabolic encephalopathy on presentation secondary to his Covid infection however this could also be toxic encephalopathy if his lithium level comes back supra therapeutic this is pending at the time of admission Due to the lobar nature of the infiltrate seen azithromycin was begun will be continued p.o. additionally Mucinex was also ordered On day 5, patient continues on corticosteroids. will hold off remdesevir. DINORAH improbved. creatinine is at 1.58 recommended vaccination for COVID 19 to patient once he is recoved. Patient has been suffering from covid encephalopathy in the evening. Patient did not require supplemental oxygen. 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 (2) DINORAH (acute kidney injury): Acute kidney injury with history of chronic kidney disease stage III attributed to his diabetes and hypertension. Patient was given intravenous fluids in the emergency department be continued on low rate normal saline overnight. BRANDI inhibitor will be held Due to his acute kidney injury his lithium will be held which is usually to treat his schizoaffective disorder and level will be sent attention needs to be paid for this to be restarted at the appropriate time and perhaps pharmacy consu lted for dose adjustments cont IVF. (3) Type 2 diabetes mellitus with chronic kidney disease, with long-term current use of insulin: Patient with history of type 2 diabetes usually using glargine Victoza and Metformin at home. The glargine to be continued Victoza Metformin held patient be given sliding scale insulin and started on NPH insulin to also counteract the effects of his dexamethasone. The patient will have an A1c checked and be on a diabetic diet (4) Essential hypertension: Typically having essential hypertension treated with lisinopril 5 this is held due to his DINORAH we will follow his blood pressures (5) Dyslipidemia: Atorvastatin is maintained for his dyslipidemia and secondary disease prevention with his diabetes (6) Bipolar I disorder, most recent episode (or current) manic: lithium held due to acute kidney injury and concern for possible toxic encephalopathy, level pending on admission, continue quetiapine and lamotrigine, reduce quetiapine dose due to confusion (7) Anemia: Patient has anemia of chronic disease hemoglobin is 11 on admission this is slightly lower than his typical home range. (8) Obesity (BMI 30-39.9): Patient has body weight of 279 a BMI of 38 this places him at higher risk for Covid morbidity (9) DVT prophylaxis: Patient we will put on 0.5 mg/kg subcu Lovenox twice daily for Covid DVT prevention (10) Fall: Patient had a fall at home likely from weakness from deconditioning and dehydration from COVID PT OT evaluation be undertaken (11) Colostomy present: Patient's colostomy is well functioning reportedly it was after a total colectomy secondary to a C. difficile infection. We will have ostomy team evaluate his site Total Time Total Time Spent Total Time Spent (In Minutes): 32 Discharge Plan Discharge Items Patient Disposition: Home - Self-Care Reason For Visit: COVID PNEUMONIA,ACUTE KIDNEY INJURY,UNCONTROLLED Discharge Diagnosis: COVID Pneumonia, DINORAH Activity: Resume your previous activity Non-emergency contact: Primary Care Provider Call non-emergency contact if: you have any medication questions Follow-up/Referrals: Brionna Lama DO [Primary Care Provider] - Diet: Carb Consistent or DM2 Addtl Attending Provider Instructions: You were diagnosed with COVID 19 You did not require any supplemental oxygen throughout the majority of your hospital stay. Pending Studies at Discharge: No Stand-Alone Forms: My [facility] [employer], Smoking Cessation Medications and DC Order Prescriptions: New Eliquis 2.5 mg tablet 2.5 mg PO BID Qty: 14 RF: 0 dexamethasone 6 mg tablet 6 mg PO DAILY Qty: 5 RF: 0 Continued multivitamin with iron tablet 1 tab PO QAM RF: 0 (DME) pen needle, diabetic [BD Ultra-Fine Ngozi Pen Needle] 32 gauge x 5/32" needle See Rx Instructions .ROUTE .MEDSUPPLY Qty: 300 RF: 3 metformin 500 mg tablet 500 mg PO BID Qty: 180 RF: 3 zinc 50 mg tablet 50 mg PO QAM RF: 0 omega-3 fatty acids [Fish Oil Concentrate] 1,000 mg capsule 1,000 mg PO QAM RF: 0 cholecalciferol (vitamin D3) 1,000 unit tablet 1,000 units PO QAM RF: 0 mecobalamin (vitamin B12) 1,000 mcg tablet,disintegrating 1,000 mcg SL QAM RF: 0 loperamide 2 mg capsule 2 mg PO QAM RF: 0 quetiapine 300 mg tablet 600 mg PO HS RF: 0 lithium carbonate 150 mg capsule 150 mg PO HS RF: 0 aspirin 81 mg Tablet,Delayed Release (Dr/Ec) 81 mg PO QAM RF: 0 lamotrigine 50 mg Tablet,Disintegrating 50 mg PO QAM RF: 0 atorvastatin 10 mg tablet 20 mg PO QAM RF: 0 levothyroxine 50 mcg tablet 50 mcg PO DAILYBB RF: 0 omeprazole 20 mg capsule,delayed release(DR/EC) 20 mg PO QAM RF: 0 Basaglar KwikPen U-100 Insulin 100 unit/mL (3 mL) insulin pen 20 - 22 unit SQ HS RF: 0 Victoza 3-Jose 0.6 mg/0.1 mL (18 mg/3 mL) pen injector 1.8 mg SQ HS RF: 0 Discontinued lisinopril 5 mg tablet 5 mg PO QAM RF: 0 Discharge Orders: Discharge Order (Routine); Ordered 04/16/21 Ordered By: Manoj Whitt/Other Patient Handouts: Managing Type 2 Diabetes, Diabetes: Sick-Day Plan, Special Foot [facility] for Diabetes Admission Data Admit Date/Time: 04/12/21 11:41 Attending Provider: Manoj White Admit Provider: Shahzad Reeves Primary Care Provider: Brionna Lama Other Providers: Shahzad Reeves ; [facility] ; [facility] Other Interventions: Discharge Summary Assessment (RN) Last Done: 04/16/21 17:02 Coding Level of Care Code D/C DAY MANAGEMENT >30 MINS Diagnoses Pneumonia due to 2019 novel coronavirus U07.1; J12.82 DINORAH (acute kidney injury) N17.9 Type 2 diabetes mellitus with chronic kidney disease, with long-term current use of insulin E11.22; Z79.4 Essential hypertension I10 Dyslipidemia E78.5 Bipolar I disorder, most recent episode (or current) manic F31.10 Anemia D64.9 Obesity (BMI 30-39.9) E66.9 DVT prophylaxis Z29.9 Fall W19.XXXA Colostomy present Z93.3
== END 2021-04-16 17:29 | disposition home or self-care (01) | DRG 177 ==
LOC: ED 09:08 → SUATTDRO 11:41 → EDINP 11:41 → 2S 04-13 13:41

== ENCOUNTER 2022-04-13 17:11 | Inpatient (IN) ==
[2022-04-13 18:07] LABS: Basophils # (auto) 0.04 K/uL (0-0.2); Basophils % (auto) 0.4 %; Eosinophils # (auto) 0.19 K/uL (0-0.50); Eosinophils % (auto) 2.1 %; Hematocrit (blood only) 36.7 % (40.1-51.0); Immature Granulocytes # (auto) 0.03 K/uL (0.00-0.02); Immature Granulocytes % (auto) 0.3 %; Lymphocytes # (auto) 1.68 K/uL (1.2-3.4); Lymphocytes % (auto) 18.8 %; Mean Corpuscular Hemoglobin 35.7 pg (25.0-34.0); Mean Corpuscular Hgb Conc 35.4 g/dL (32.0-36.0); Mean Corpuscular Volume 100.8 fL (80.0-100.0); Mean Platelet Volume 12.2 fL (9.4-12.4); Monocytes # (auto) 0.71 K/uL (0.24-0.82); Monocytes % (auto) 7.9 %; Neutrophils # (auto) 6.31 K/uL (1.4-6.5); Neutrophils % (auto) 70.5 %; Platelet Count 135 K/uL (130-400); RDW Coefficient of Variation 12.7 % (11.5-14.5); RDW Standard Deviation 47.1 fL (36.4-46.3); Red Blood Count 3.64 M/uL (4.63-6.08); White Blood Count 8.96 K/ul (4.8-10.8)
[2022-04-13 18:28] LABS: Albumin Globulin Ratio 1.7 (0.9-2); Albumin Level 4.3 gm/dl (3.4-5.0); BUN Creatinine Ratio 29.5 (10-20); Bilirubin,Total 0.5 mg/dl (0.2-1.0); Calcium 9.7 mg/dl (8.5-10.1); Creatinine Clr Calc Pharmacy 28.8 ml/min; Est GFR (African American) 21.8 ml/min; Est GFR (Non-African American) 18.8 ml/min; Globulin 2.6 gm/dl (2.5-4.0); Potassium 5.8 mmol/L (3.5-5.1); Total Protein 6.9 gm/dl (6.0-8.3)
--- NOTE | 2022-04-13 18:42 | Emergency Department Note ---
Impression & Plan DINORAH (acute kidney injury), Acute hyperkalemia ED Provider Note NAME: JESIKA BALES AGE: 72 SEX: M : 1950 ARRIVES VIA: Walk-In INFORMANT: Patient, ED PROVIDER(S): Vishal Rivera MD Chief Complaint: Abnormal blood work HPI: Patient presents due to concern for DINORAH and abnormal blood work that was completed in the outpatient setting. The patient was advised by Dr. Coughlin his book trimmer to present for further evaluation and treatment. Patient's blood work from earlier today does show a doubling of his creatinine at greater than 3 currently and the patient's potassium was 6.1. Patient did have an increase in his lisinopril from 5 to 10 mg back in March 14. Patient denies any chest pains but the thinks that she has noticed him to be more winded. The patient has had chronic nonproductive cough. Patient is a non-smoker. The patient does have some chronic stable trace lower extremity edema but unchanged. Patient has not had any increase in potassium in the diet. The patient has been compliant with his medications. No changes in his insulin regimen. does state that he has been drinking [place] of water. The patient does have some difficulty with urination in the morning but seems to have good urine output during the day. Patient denies any prior history of any prostate issues. ROS: See HPI for pertinent positives and negatives. A total of 10 systems were revi ewed and otherwise negative. Past medical history: See below Surgical history: See below Social history: See below Physical Exam: GENERAL: NAD, wearing a mask, non-toxic. EYE EXAM: Normal conjunctiva. PERRL, no anisocoria and EOM's grossly intact w/o pain. NECK: Supple, no nuchal rigidity, no adenopathy, non-tender. No signs of meningismus. FROM of the neck with good chin to chest and neck extension. No stridor. LUNGS: Clear to auscultation. Normal chest wall mechanics. HEART: NSR, no MRG. ABDOMEN: Abdomen soft, non-tender, normo-active bowel sounds, no masses, no rebound or guarding. BACK: No CVA TTP. SKIN: No rashes and no bruising. UPPER EXTREMITIES: Upper extremities are grossly normal. LOWER EXTREMITIES: Grossly normal, trace symmetric bilateral lower extremity edema without any calf pain or erythema. Compartments are soft neurovascular intact, no pain. NEURO EXAM: A&O x3, cranial nerves II-XII grossly intact, normal speech, moves all 4 extremities. Differential diagnoses: Infection, dehydration, metabolic abnormality, hypo/hyperglycemia, electrolyte disturbance, anemia, hypoxia, cardiac sources, intracerebral event, toxicologic, neurologic, as well as other pathologies. Course: Patient was seen and evaluated the bedside. Full history physical exam was performed. EKG interpreted by me Normal sinus rhythm, rate of 79 normal intervals normal axis no ST elevations or T WI. Imaging Studies: See Below Cardiac monitoring: An order was placed for continuous cardiac monitoring. The monitor shows a rate of 77 with sinus rhythm. MDM: Patient was seen due to concern for DINORAH. The patient did have blood work completed which shows a white count of 8 with a hemoglobin of 13. Platelet count is unremarkable. Kidney function does show slightly decreased bicarbonate with normal anion gap. Patient's potassium currently is 5.8. Sodium 133. Patient was ordered Lasix and albuterol treatments. Chest x-ray also obtained along with a COVID swab. I did speak the hospitalist Dr. Segura and the patient was admitted to the medicine service. Past Med/Surg History Medical History Anemia Bipolar I disorder, most recent episode (or current) manic Chronic kidney disease, stage III (moderate) Colostomy present Dyslipidemia First degree AV block GERD without esophagitis Hypothyroidism Loss of protective sensation of skin of foot Obesity (BMI 30-39.9) Peripheral neuropathy Proteinuria Schizoaffective disorder Stage 3b chronic kidney disease Type 2 diabetes mellitus Type 2 diabetes mellitus with chronic kidney disease, with long-term current use of insulin Vitamin D deficiency Surgical History H/O colectomy (09/2011) Total Colectomy w/ Proctectomy, ileostomy, September 2011. Secondary to Cdiff/abscess History of tracheostomy S/P cataract surgery S/P eye surgery 2 retinal sx on L eye 1 on R eye S/P tooth extraction Family History Brother Myocardial infarction Coronary heart disease Father Congestive heart failure Diabetes Mother Coronary heart disease Denies family history of Ovarian cancer Prostate cancer Breast cancer Colorectal cancer Social History Smoking Status: Current every day smoker Tobacco Type: Cigarettes packs per day: 1; Second Hand Exposure: Yes; Do You Dip or Chew Tobacco: No; Hx Alcohol Use: Yes Hx Substance Use: No Preferred Language: [place] Communication Ability: Effective Visual Impairment: Blindness Hearing Ability: Normal Chemical Equipment Sales Engineer Required: No Beliefs That Will Affect Care: None marital status: Current Living Situation: Spouse current occupational status: 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 ) during the past year weight has: remained stable Dental Care, Regularly: No Physical Activity Frequency: Daily Physical Activity Frequency Comment: walk Seatbelt Use: always Sunscreen Use: Yes Assistive Devices: Cane, Denture - Upper, Denture - Lower and Glasses Allergies Allergies Allergy/AdvReac Type Severity Reaction Status Date / Time adhesive tape Allergy Verified 03/14/22 10:14 latex Allergy Verified 03/14/22 10:14 No Known Drug Allergies Allergy Verified 03/14/22 10:14 Home Meds Home Medications Medication Instructions Recorded Confirmed mecobalamin (vitamin B12) 1,000 1,000 mcg sublingual QAM 12/13/18 04/13/22 mcg disintegrating tablet,sublingual multivitamin with iron 1 tab PO QAM 05/07/19 04/13/22 quetiapine 300 mg tablet 600 mg PO HS 06/03/19 04/13/22 aspirin 81 mg tablet,delayed 81 mg PO QAM 04/12/21 04/13/22 release lithium carbonate 150 mg capsule 150 mg PO DAILY 09/12/21 04/13/22 blood sugar diagnostic (OneTouch 12/13/21 04/13/22 Verio test strips) blood-glucose sensor (Dexcom G6 12/13/21 04/13/22 Sensor device) blood-glucose transmitter (Dexcom 12/13/21 04/13/22 G6 Transmitter device) cholecalciferol (vitamin D3) 50 50 mcg PO DAILY 12/13/21 04/13/22 mcg (2,000 unit) capsule semaglutide 0.25 mg or 0.5 mg (2 0.5 mg subcut .weekly 03/14/22 04/13/22 mg/1.5 mL) subcutaneous pen injector (Acousticeye) fluocinonide 0.05 % topical 1 applic topical DAILY 04/13/22 04/13/22 solution omega-3 fatty acids 1,000 mg 1,000 mg PO DAILY 04/13/22 04/13/22 capsule zinc acetate 50 mg (zinc) capsule 50 mg PO DAILY 04/13/22 04/13/22 Previous Rx's Medication Instructions Recorded pen needle, diabetic 32 gauge x #300 ea 09/16/19" (BD Ultra-Fine Ngozi Pen Needle) metformin 500 mg tablet 500 mg PO BID #180 tabs 09/06/21 omeprazole 20 mg capsule,delayed 20 mg PO QAM #90 caps 11/22/21 release empagliflozin 10 mg tablet 10 mg PO DAILY #90 tabs 12/13/21 (Jardiance) insulin aspar prot-insulin aspart 23 unit (0.23 mL) subcut BID #3 12/13/21 100 unit/mL (70-30) subcutaneous Boxes pen (Novolog Mix 70-30FlexPen U-100) levothyroxine 50 mcg tablet 50 mcg PO DAILYBB #90 tabs 02/13/22 atorvastatin 10 mg tablet 10 mg PO QAM #90 tabs 02/28/22 lisinopril 10 mg tablet 10 mg PO QAM #30 tabs 03/14/22 Results & Data (ED) Vital Signs Vital Signs - 24 hr 04/13/22 17:25 04/13/22 19:18 Temperature 36.7 C Temperature Source Temporal Artery Scan Pulse Rate 73 Pulse Rate [Finger] 68 Respiratory Rate 24 18 Respiratory Effort / Characteristics Non-Labored Respiratory Depth Normal Respiratory Pattern Regular Blood Pressure 113/55 L Blood Pressure [Right Arm] 128/51 L Blood Pressure Mean 74 Blood Pressure Mean [Right Arm] 76 Blood Pressure Position Sitting Pulse Oximetry 98 100 Oxygen Delivery Method Room Air Room Air Sepsis Recent Fever Within 48 Hours No Sepsis New/Unexplained Change in Mental Status No Sepsis Action Taken by Nursing No Action Required Home Medications Current Medication List: was personally reviewed by me Laboratory Data Attestation: I reviewed the patient's lab results. Result diagrams: 04/13/22 17:55 11/17/22 17:55 Lab Results 04/13/22 04/13/22 04/13/22 Range/Units 17:55 17:55 17:55 WBC 8.96 (4.8-10.8) K/ul RBC 3.64 L (4.63-6.08) M/uL Hgb 13.0 L (14.0-18.0) g/dl Hct 36.7 L (40.1-51.0) % MCV 100.8 H (80.0-100.0) fL MCH 35.7 H (25.0-34.0) pg MCHC 35.4 (32.0-36.0) g/dL RDW Std Deviation 47.1 H (36.4-46.3) fL RDW Coeff of Surinder 12.7 (11.5-14.5) % Plt Count 135 (130-400) K/uL MPV 12.2 (9.4-12.4) fL Immature Gran % (Auto) 0.3 % Neut % (Auto) 70.5 % Lymph % (Auto) 18.8 % Harvey % (Auto) 7.9 % Eos % (Auto) 2.1 % Baso % (Auto) 0.4 % Neut # (Auto) 6.31 (1.4-6.5) K/uL Lymph # (Auto) 1.68 (1.2-3.4) K/uL Harvey # (Auto) 0.71 (0.24-0.82) K/uL Eos # (Auto) 0.19 (0-0.50) K/uL Baso # (Auto) 0.04 (0-0.2) K/uL Immature Gran # (Auto) 0.03 H (0.00-0.02) K/uL Sodium 133 L (136-145) mmol/L Potassium 5.8 H (3.5-5.1) mmol/L Chloride 111 H (98-107) mmol/L Carbon Dioxide 17 L (21-32) mmol/L Anion Gap 5 (3-11) BUN 92 H (6-23) mg/dl Creatinine 3.12 H (0.6-1.4) mg/dl Est Cr Clr Drug Dosing 28.8 ml/min Est GFR ( Amer) 21.8 ml/min Est GFR (Non-Af Amer) 18.8 ml/min BUN/Creatinine Ratio 29.5 H (10-20) Glucose 152 H (70-99(Fasting)) mg/dl Osmolality 321 H (280-300) mOsm/kg Calcium 9.7 (8.5-10.1) mg/dl Phosphorus (2.5-4.9) mg/dl Magnesium (1.7-2.4) mg/dl Total Bilirubin 0.5 (0.2-1.0) mg/dl AST 15 (13-39) U/L ALT 14 (7-52) U/L Alkaline Phosphatase 57 (34-104) U/L Total Protein 6.9 (6.0-8.3) gm/dl Albumin 4.3 (3.4-5.0) gm/dl Globulin 2.6 (2.5-4.0) gm/dl Albumin/Globulin Ratio 1.7 (0.9-2) SARS-CoV-2, RNA, NAAT (NEGATIVE) 04/13/22 04/13/22 Range/Units 17:55 19:33 WBC (4.8-10.8) K/ul RBC (4.63-6.08) M/uL Hgb (14.0-18.0) g/dl Hct (40.1-51.0) % MCV (80.0-100.0) fL MCH (25.0-34.0) pg MCHC (32.0-36.0) g/dL RDW Std Deviation (36.4-46.3) fL RDW Coeff of Surinder (11.5-14.5) % Plt Count (130-400) K/uL MPV (9.4-12.4) fL Immature Gran % (Auto) % Neut % (Auto) % Lymph % (Auto) % Harvey % (Auto) % Eos % (Auto) % Baso % (Auto) % Neut # (Auto) (1.4-6.5) K/uL Lymph # (Auto) (1.2-3.4) K/uL Harvey # (Auto) (0.24-0.82) K/uL Eos # (Auto) (0-0.50) K/uL Baso # (Auto) (0-0.2) K/uL Immature Gran # (Auto) (0.00-0.02) K/uL Sodium (136-145) mmol/L Potassium (3.5-5.1) mmol/L Chloride (98-107) mmol/L Carbon Dioxide (21-32) mmol/L Anion Gap (3-11) BUN (6-23) mg/dl Creatinine (0.6-1.4) mg/dl Est Cr Clr Drug Dosing ml/min Est GFR ( Amer) ml/min Est GFR (Non-Af Amer) ml/min BUN/Creatinine Ratio (10-20) Glucose (70-99(Fasting)) mg/dl Osmolality (280-300) mOsm/kg Calcium (8.5-10.1) mg/dl Phosphorus 4.7 (2.5-4.9) mg/dl Magnesium 2.3 (1.7-2.4) mg/dl Total Bilirubin (0.2-1.0) mg/dl AST (13-39) U/L ALT (7-52) U/L Alkaline Phosphatase (34-104) U/L Total Protein (6.0-8.3) gm/dl Albumin (3.4-5.0) gm/dl Globulin (2.5-4.0) gm/dl Albumin/Globulin Ratio (0.9-2) SARS-CoV-2, RNA, NAAT NEGATIVE (NEGATIVE) Administered Medications Lactated Ringer's (Lr) 1,000 mls @ 125 mls/hr IV .Q8H MARGARET Stop: 04/14/22 06:20 Last Admin: 04/13/22 23:37 Dose: 125 mls/hr Documented By: IZABEL Insulin Aspart (Insulin Aspart Per Unit) 0 units SC ACHS MARGARET Stop: 05/13/22 22:20 Last Admin: 04/13/22 23:36 Dose: Not Given Documented By: TNK Co-signed By: TMD Insulin Glargine (Lantus Per Unit Charge) 10 units SQ BID MARGARET Stop: 05/13/22 22:20 Last Admin: 04/13/22 23:36 Dose: 10 units Documented By: TNK Co-signed By: TMD Discontinued Medications Albuterol (Albuterol 0.5% Neb Soln 2.5 Mg/0.5 Ml Vial) 2.5 mg NEB NOW STA; Protocol Stop: 04/13/22 18:53 Last Admin: 04/13/22 19:17 Dose: 2.5 mg Documented By: QGV Furosemide (Furosemide 40 Mg/4 Ml Vial) 40 mg IV ONE ONE Stop: 04/13/22 18:53 Last Admin: 04/13/22 19:17 Dose: 40 mg Documented By: QGV Imaging Data Radiologist's Impression: Chest X-Ray 04/13/22 17:28 XR chest 1V portable CLINICAL HISTORY: Shortness of breath. COMPARISON STUDY: Chest radiograph May 12, 2021. FINDINGS: Lung volumes are normal. Lungs are clear. There is no pneumothorax or pleural effusion. Cardiac size is stable. Mediastinal contours are normal. There is no evidence for pulmonary edema. IMPRESSION: No acute cardiopulmonary findings. ACT 112: Negative or not required by law. Electronically signed by: Mukul Caballero M.D. 04/13/2022 7:31 PM Discharge Plan Visit Data Chief Complaint: Abnormal Labs/Diagnostic Testing Stated Complaint: REFERRED BY DOC, ABNORMAL LABS ED Provider: Vishal Rivera Discharge Problem: DINORAH (acute kidney injury), Acute hyperkalemia Patient Disposition: Admitted As Inpatient Discharge Instructions Interventions: ED Discharge Assessment Last Done: 04/13/22 21:37
[2022-04-13] MEDS ORDERED: FUROSEMIDE 40 MG/4 ML VIAL IV ONE (18:52)
[2022-04-13] MEDS ORDERED: ALBUTEROL 0.5% NEB SOLN 2.5 MG/0.5 ML VIAL NEB STA (18:52)
--- NOTE | 2022-04-13 19:32 | XRay Report ---
XR chest 1V portable CLINICAL HISTORY: Shortness of breath. COMPARISON STUDY: Chest radiograph May 12, 2021. FINDINGS: Lung volumes are normal. Lungs are clear. There is no pneumothorax or pleural effusion. Car diac size is stable. Mediastinal contours are normal. There is no evidence for pulmonary edema. IMPRESSION: No acute cardiopulmonary findings. ACT 112: Negative or not required by law. Electronically signed by: Mukul Caballero M.D. 04/13/2022 7:31 PM
--- NOTE | 2022-04-13 19:41 | History & Physical Report ---
Date of Service April 13, 2022 Assessment & Plan (1) DINORAH (acute kidney injury): Plan: 72yo male with history of DM, HTN, HLP and CKD-III presenting with acute increase in BUN and Cr. BUN 27 --> 92, Cr 1.7 -->3.12 from 03/10/22. Patient with hyperkalemia - K=5.8. Also with non-anion gap metabolic acidosis with HCO3 of 17. Patient appears euvolemic on exam. He denies vomiting, diarrhea. He is compliant with his medications - Lisinopril recently increased from 5 to 10mg daily which could certainly contribute to increase in Cr. -Admit to medical with telemetry -Check urine Na and Cr to calculate FeNa -Check renal ultrasound -Gentle IVF - LR at 125mL/hr x 1 liter -Avoid nephrotoxic agents -Will hold Lisinopril for now as >30% increase in Cr since dose change -Renal dosing where needed -BMP q 8 hours with next for 23:30 -Nephrology consultation appreciated (2) Acute hyperkalemia: Plan: K=5.8, no acute EKG changes. Hyperkalemia in setting of DINORAH on CKD. Recent increase in Lisinopril dosing. No K supplementation. -Telemetry monitoring -Holding Lisinopril -BMP q 8 hours (3) Type 2 diabetes mellitus: Plan: Well controlled Type II DM. Patient is compliant with home regimen, Metformin, Insulin 70/30 23u BID semaglutide and empagliflozin. Blood sugar = 152. Last PpfB6F=2.3 on 04/13/22 -Hold Metformin -Hold Semaglutide and Empagliflozin for now -Lantus 10u BID -ISS -Goal blood sugar 110 - 140 (4) Bipolar I disorder, most recent episode (or current) manic: Plan: Moods stable and well controlled. -Continue [place] -Check [place] level (5) Schizoaffective disorder: Plan: Moods stable. -Continue Seroquel 500mg po qHS -Continue [place] (6) Hypothyroidism: Plan: Chronic. Well controlled on current regimen. Last TSH = 1.397 on 09/06/21 -Continue Synthroid 50mcg po daily (7) Anemia: Plan: Stable anemia with Hgb=13, Hct=36.7 in setting of CKD. Macrocytosis with XYT=421.8. Patient is on Vitamin B12 supplementation -Continue B12 outpatient -Monitor CBC (8) GERD without esophagitis: Plan: Chronic. Patient on Omeprazole. Denies symptoms. -Hold Omeprazole in setting of worsening kidney disease (9) Essential hypertension: Plan: Blood pressure presently 128/51 -Holding Lisinopril as above -Monitor BP (10) Dyslipidemia: Plan: Chronic. -Continue Atorvastatin 10mg po daily (11) H/O colectomy: Plan: With normal ostomy output. -Monitor F/E/N - LR at 125mL/hr x 1 liter, BMP q 8 hours, CC/Renal diet as tolerated Ppx - SCDs Code - Full Dispo - Admit to medical with telemetry History of Present Illness Chief Complaint: abnormal labs Primary Care Provider: DO Tereza Dang Edy is a pleasant 72yo male with history of HTN, DM, Hypothyroidism, Bipolar and CKD III with baseline Cr of approximately 1.7 presenting with abnormal labs, worsening renal function and hyperkalemia. Patient had routine labs performed today by his Endocrinology team. He was contacted by Dr. Coughlin from Nephrology around 16:00 and told to come to the ER due to worsening renal function and hyperkalemia. Patient overall has no complaints. He denies fever, chills, cough, SOB, chest pain. He has not had nausea or vomiting. He has a colostomy and reports several days of watery output but most recently has been normal. Patient reports decreased appetite over the last week. He has not been eating as much but has been trying to drink more water. Reports food tastes fine. He is able to urinate without difficulty and reports his urine is clear and yellow with no blood, foam or sediment. Possibly slight increase in urine output over the last several days. No additional complaints at this time. Patient did have his Lisinopril increased on 03/14/22 from 5 --> 10 mg daily. In the ER he is afebrile, HD stable, NAD. ER Course: Lasix 40mg IV Albuterol 2.5mg neb Allergies Allergy/AdvReac Type Severity Reaction Status Date / Time adhesive tape Allergy Verified 03/14/22 10:14 latex Allergy Verified 03/14/22 10:14 No Known Drug Allergies Allergy Verified 03/14/22 10:14 Home Medications Medication Instructions Recorded Confirmed Type mecobalamin (vitamin B12) 1,000 1,000 mcg sublingual QAM 12/13/18 04/13/22 History mcg disintegrating tablet,sublingual multivitamin with iron 1 tab PO QAM 05/07/19 04/13/22 History quetiapine 300 mg tablet 600 mg PO HS 06/03/19 04/13/22 History pen needle, diabetic 32 gauge x #300 ea 09/16/19 04/13/22 Rx 5/32" (BD Ultra-Fine Ngozi Pen Needle) aspirin 81 mg tablet,delayed 81 mg PO QAM 04/12/21 04/13/22 History release metformin 500 mg tablet 500 mg PO BID #180 tabs 09/06/21 04/13/22 Rx lithium carbonate 150 mg capsule 150 mg PO DAILY 09/12/21 04/13/22 History omeprazole 20 mg capsule,delayed 20 mg PO QAM #90 caps 11/22/21 04/13/22 Rx release blood sugar diagnostic (OneTouch 12/13/21 04/13/22 History Verio test strips) blood-glucose sensor (Dexcom G6 12/13/21 04/13/22 History Sensor device) blood-glucose transmitter (Dexcom 12/13/21 04/13/22 History G6 Transmitter device) cholecalciferol (vitamin D3) 50 50 mcg PO DAILY 12/13/21 04/13/22 History mcg (2,000 unit) capsule empagliflozin 10 mg tablet 10 mg PO DAILY #90 tabs 12/13/21 04/13/22 Rx (Jardiance) insulin aspar prot-insulin aspart 23 unit (0.23 mL) subcut BID #3 12/13/21 04/13/22 Rx 100 unit/mL (70-30) subcutaneous Boxes pen (Novolog Mix 70-30FlexPen U-100) levothyroxine 50 mcg tablet 50 mcg PO DAILYBB #90 tabs 02/13/22 04/13/22 Rx atorvastatin 10 mg tablet 10 mg PO QAM #90 tabs 02/28/22 04/13/22 Rx lisinopril 10 mg tablet 10 mg PO QAM #30 tabs 03/14/22 04/13/22 Rx semaglutide 0.25 mg or 0.5 mg (2 0.5 mg subcut .weekly 03/14/22 04/13/22 History mg/1.5 mL) subcutaneous pen injector (TiGenix) fluocinonide 0.05 % topical 1 applic topical DAILY 04/13/22 04/13/22 History solution omega-3 fatty acids 1,000 mg 1,000 mg PO DAILY 04/13/22 04/13/22 History capsule zinc acetate 50 mg (zinc) capsule 50 mg PO DAILY 04/13/22 04/13/22 History Past Med/Surg History Medical History Anemia Bipolar I disorder, most recent episode (or current) manic Chronic kidney disease, stage III (moderate) Colostomy present Dyslipidemia First degree AV block GERD without esophagitis Hypothyroidism Loss of protective sensation of skin of foot Obesity (BMI 30-39.9) Peripheral neuropathy Proteinuria Schizoaffective disorder Stage 3b chronic kidney disease Type 2 diabetes mellitus Type 2 diabetes mellitus with chronic kidney disease, with long-term current use of insulin Vitamin D deficiency Surgical History H/O colectomy (09/2011) Total Colectomy w/ Proctectomy, ileostomy, September 2011. Secondary to Cdiff/abscess History of tracheostomy S/P cataract surgery S/P eye surgery 2 retinal sx on L eye 1 on R eye S/P tooth extraction Family History Brother Myocardial infarction Coronary heart disease Father Congestive heart failure Diabetes Mother Coronary heart disease Denies family history of Ovarian cancer Prostate cancer Breast cancer Colorectal cancer Social History Smoking Status: Current every day smoker Tobacco Type: Cigarettes packs per day: 1; Second Hand Exposure: No; Hx Alcohol Use: Yes Hx Substance Use: No Preferred Language: Tamazight Communication Ability: Effective Visual Impairment: Blindness Hearing Ability: Normal Logging Specialist Required: No Beliefs That Will Affect Care: Samaritan Samaritan Beliefs: Episcopalian marital status: Current Living Situation: Spouse current occupational status: retired 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 ) during the past year weight has: remained stable Dental Care, Regularly: No Physical Activity Frequency: Daily Physical Activity Frequency Comment: walk Seatbelt Use: always Sunscreen Use: Yes Assistive Devices: Walker Review of Systems Review of Systems: All systems reviewed & are unremarkable except as noted in HPI & below Physical Exam Physical Exam: General: patient resting comfortably, NAD, non-toxic in appearance, AA&O x 4 Skin: warm, dry, intact, no rashes or lesions HEENT: NC/AT, PERRL, EOMI, anicteric sclera, conjunctiva without injection, external ear normal to inspection and nontender, nares patent, moist mucus membranes, dentition intact, no oropharyngeal lesions, neck supple, trachea midline, no LAD, no thyromegaly, no JVD Heart: +S1/S2, regular, no m/r/g Lungs: equal air entry bilaterally, no rales/rhonchi/wheezes Abd: +BS, soft, NT/ND, no masses/organomegaly/ascites, colostomy bag in place with normal appearing output, pink stoma, no bleeding/erythema Ext: warm, 2+ pulses in UE/LE bilaterally, no clubbing/cyanosis or edema Neuro: nonfocal, patient AA&O x 4, speech intact, no facial droop, moving all extremities on command with equal strength 5/5 Results & Data Results & Data ([facility]) Vital Signs (Past 12 Hours) Vital Signs Temp Pulse Pulse Resp BP BP Pulse Ox 04/13/22 19:18 68 18 128/51 L 100 04/13/22 17:25 36.7 C 73 24 113/55 L 98 O2 Del Method 04/13/22 19:18 Room Air 04/13/22 17:25 Room Air Laboratory Results Laboratory Results WBC 8.96 K/ul (4.8-10.8) 04/13/22 17:55 RBC 3.64 M/uL (4.63-6.08) L 04/13/22 17:55 Hgb 13.0 g/dl (14.0-18.0) L 04/13/22 17:55 Hct 36.7 % (40.1-51.0) L 04/13/22 17:55 MCV 100.8 fL (80.0-100.0) H 04/13/22 17:55 MCH 35.7 pg (25.0-34.0) H 04/13/22 17:55 MCHC 35.4 g/dL (32.0-36.0) 04/13/22 17:55 RDW Std Deviation 47.1 fL (36.4-46.3) H 04/13/22 17:55 RDW Coeff of Surinder 12.7 % (11.5-14.5) 04/13/22 17:55 Plt Count 135 K/uL (130-400) 04/13/22 17:55 MPV 12.2 fL (9.4-12.4) 04/13/22 17:55 Immature Gran % (Auto) 0.3 % 04/13/22 17:55 Neut % (Auto) 70.5 % 04/13/22 17:55 Lymph % (Auto) 18.8 % 04/13/22 17:55 [place] % (Auto) 7.9 % 04/13/22 17:55 Eos % (Auto) 2.1 % 04/13/22 17:55 Baso % (Auto) 0.4 % 04/13/22 17:55 Neut # (Auto) 6.31 K/uL (1.4-6.5) 04/13/22 17:55 Lymph # (Auto) 1.68 K/uL (1.2-3.4) 04/13/22 17:55 [place] # (Auto) 0.71 K/uL (0.24-0.82) 04/13/22 17:55 Eos # (Auto) 0.19 K/uL (0-0.50) 04/13/22 17:55 Baso # (Auto) 0.04 K/uL (0-0.2) 04/13/22 17:55 Immature Gran # (Auto) 0.03 K/uL (0.00-0.02) H 04/13/22 17:55 Sodium 133 mmol/L (136-145) L 04/13/22 17:55 Potassium 5.8 mmol/L (3.5-5.1) H 04/13/22 17:55 Chloride 111 mmol/L (98-107) H 04/13/22 17:55 Carbon Dioxide 17 mmol/L (21-32) L 04/13/22 17:55 Anion Gap 5 (3-11) 04/13/22 17:55 BUN 92 mg/dl (6-23) H 04/13/22 17:55 Creatinine 3.12 mg/dl (0.6-1.4) H 04/13/22 17:55 Est Cr Clr Drug Dosing 28.8 ml/min 04/13/22 17:55 Est GFR ( Amer) 21.8 ml/min 04/13/22 17:55 Est GFR (Non-Af Amer) 18.8 ml/min 04/13/22 17:55 BUN/Creatinine Ratio 29.5 (10-20) H 04/13/22 17:55 Glucose 152 mg/dl (70-99(Fasting)) H 04/13/22 17:55 Osmolality 321 mOsm/kg (280-300) H 04/13/22 17:55 Calcium 9.7 mg/dl (8.5-10.1) 04/13/22 17:55 Total Bilirubin 0.5 mg/dl (0.2-1.0) 04/13/22 17:55 AST 15 U/L (13-39) 04/13/22 17:55 ALT 14 U/L (7-52) 04/13/22 17:55 Alkaline Phosphatase 57 U/L (34-104) 04/13/22 17:55 Total Protein 6.9 gm/dl (6.0-8.3) 04/13/22 17:55 Albumin 4.3 gm/dl (3.4-5.0) 04/13/22 17:55 Globulin 2.6 gm/dl (2.5-4.0) 04/13/22 17:55 Albumin/Globulin Ratio 1.7 (0.9-2) 04/13/22 17:55 Impressions Chest X-Ray 04/13/22 17:28 XR chest 1V portable CLINICAL HISTORY: Shortness of breath. COMPARISON STUDY: Chest radiograph May 12, 2021. FINDINGS: Lung volumes are normal. Lungs are clear. There is no pneumothorax or pleural effusion. Cardiac size is stable. Mediastinal contours are normal. There is no evidence for pulmonary edema. IMPRESSION: No acute cardiopulmonary findings. ACT 112: Negative or not required by law. Electronically signed by: Mukul Caballero M.D. 04/13/2022 7:31 PM ECG Additional Comments: EKG with SR at 73, 1st degree AV block with BA=465, OKJ=922, GWx=490, incomplete LBBB, non-specific ST changes, no acute ischemic changes Code Status & VTE Plan VTE Prophylaxis Plan VTE Prophylaxis will be ordered: Yes PG Care Time/CCT Total # of Minutes Spent Total Time Spent with Patient: Total time spent is greater than 50% in coordination of care (as documented) at patient's floor/unit and/or counseling patient: Coding Level of Care Code 58757 Initial Inpt Care Lvl 3 Diagnoses DINORAH (acute kidney injury) N17.9 Acute hyperkalemia E87.5 Type 2 diabetes mellitus E11.9 Bipolar I disorder, most recent episode (or current) manic F31.10 Schizoaffective disorder F25.9 Hypothyroidism E03.9 Anemia D64.9 GERD without esophagitis K21.9 Essential hypertension I10 Dyslipidemia E78.5 H/O colectomy Z90.49
[2022-04-13 22:03] LABS: Appearance Urine Clear (Clear); Bilirubin Urine Negative (Negative); Blood Urine Negative (Negative); Color Urine Yellow; Glucose Urine UA 2+ (Negative); Ketones Urine Negative (Negative); Leukocyte Esterase Urine Negative (Negative); Nitrite Urine Negative (Negative); Protein Urine Negative (Negative); Specific Gravity Urine 1.015 (1.000-1.030); Urobilinogen Urine Negative (Negative)
[2022-04-13 22:15] LABS: Urine Potassium 44.4 mmol/L
[2022-04-13] MEDS ORDERED: ONDANSETRON INJ 2 MG/ML 2 ML VIAL IV PRN (22:21)
[2022-04-13] MEDS ORDERED: LACTATED RINGER'S 1,000 ML IV SCH (22:21)
[2022-04-13] MEDS ORDERED: DEXTROSE 50% 50 ML SYRINGE IV PRN (22:21)
[2022-04-13] MEDS ORDERED: GLUCOSE 10 TAB/TUBE PO PRN (22:21)
[2022-04-13] MEDS ORDERED: CARBOHYDRATES FOR HYPOGLYCEMIA PO PRN (22:21)
[2022-04-13] MEDS ORDERED: GLUCAGON FOR INJ 1 MG VIAL SQ PRN (22:21)
[2022-04-13] MEDS ORDERED: GLUCOSE 40% GEL 15 GM TUBE PO PRN (22:21)
[2022-04-13] MEDS ORDERED: ACETAMINOPHEN 325 MG TAB PO PRN (22:21)
[2022-04-13 22:41] LABS: Magnesium 2.3 mg/dl (1.7-2.4); Phosphorus 4.7 mg/dl (2.5-4.9)
[2022-04-13] MEDS: INSULIN ASPART PER UNIT SC SCH (23:36)
[2022-04-13] MEDS: LANTUS PER UNIT CHARGE SQ SCH (23:36)
[2022-04-13 23:59] LABS: BUN Creatinine Ratio 31.1 (10-20); Calcium 9.7 mg/dl (8.5-10.1); Creatinine Clr Calc Pharmacy 30.2 ml/min; Est GFR (African American) 22.9 ml/min; Est GFR (Non-African American) 19.8 ml/min; Potassium 6.1 mmol/L (3.5-5.1)
[2022-04-14] MEDS ORDERED: SODIUM BICARBONATE 4.2% INJ 10 ML SYR IV STA (00:07)
[2022-04-14] MEDS ORDERED: STAT IV STA (00:07)
[2022-04-14] MEDS ORDERED: LACTATED RINGER'S 1,000 ML IV SCH (00:15)
[2022-04-14] MEDS ORDERED: CALCIUM GLUCONATE 10% 1,000 MG in DEXTROSE 5% 50 ML IV ONE (00:15)
[2022-04-14] MEDS ORDERED: SODIUM BICARB 8.4% INJ 50 MEQ/50 ML SYR IV STA (00:24)
[2022-04-14 00:56] LABS: Creatinine Urine Random 60.4 mg/dl
[2022-04-14] MEDS: MELATONIN 3 MG TAB PO PRN ×2 (01:40→20:13)
[2022-04-14] MEDS: LEVOTHYROXINE SODIUM 50 MCG TABLET PO SCH (06:12)
--- NOTE | 2022-04-14 07:57 | Hospitalist Progress Note ---
Date of Service April 14, 2022 Assessment & Plan (1) DINORAH (acute kidney injury): Plan: Pt is a 72 yo male with history of DM, HTN, HLP and CKD-III presenting with acute increase in BUN and Cr DINORAH . BUN 27 --> 92, Cr 1.7 -->3.12 from 03/10/22. Patient with hyperkalemia - K=5.8. Also with non-anion gap metabolic acidosis with HCO3 of 17. Patient appears euvolemic on exam. He denies vomiting, diarrhea. He is compliant with his medications - Lisinopril recently increased from 5 to 10mg daily which could certainly contribute to increase in Cr. -Admit to medical with telemetry -Check urine Na and Cr to calculate FeNa -Check renal ultrasound -Gentle IVF - LR at 125mL/hr x 1 liter -Avoid nephrotoxic agents -Will hold Lisinopril for now as >30% increase in Cr since dose change -Renal dosing where needed -BMP q 8 hours with next for 23:30 -Nephrology consultation appreciated (2) Acute hyperkalemia: Plan: K=5.8, no acute EKG changes. Hyperkalemia in setting of DINORAH on CKD. Recent increase in Lisinopril dosing. No K supplementation. -Telemetry monitoring -Holding Lisinopril -BMP q 8 hours (3) Type 2 diabetes mellitus: Plan: Well controlled Type II DM. Patient is compliant with home regimen, Metformin, Insulin 70/30 23u BID semaglutide and empagliflozin. Blood sugar = 152. Last KauW5P=6.3 on 04/13/22 -Hold Metformin -Hold Semaglutide and Empagliflozin for now -Lantus 10u BID -ISS -Goal blood sugar 110 - 140 (4) Bipolar I disorder, most recent episode (or current) manic: Plan: Moods stable and well controlled. -Continue Sunflower -Check Sunflower level (5) Schizoaffective disorder: Plan: Moods stable. -Continue Seroquel 500mg po qHS -Continue [place] (6) Hypothyroidism: Plan: Chronic. Well controlled on current regimen. Last TSH = 1.397 on 09/06/21 -Continue Synthroid 50mcg po daily (7) Anemia: Plan: Stable anemia with Hgb=13, Hct=36.7 in setting of CKD. Macrocytosis with ZTH=351.8. Patient is on Vitamin B12 supplementation -Continue B12 outpatient -Monitor CBC (8) GERD without esophagitis: Plan: Chronic. Patient on Omeprazole. Denies symptoms. -Hold Omeprazole in setting of worsening kidney disease (9) Essential hypertension: Plan: Blood pressure presently 128/51 -Holding Lisinopril as above -Monitor BP (10) Dyslipidemia: Plan: Chronic. -Continue Atorvastatin 10mg po daily (11) H/O colectomy: Plan: With normal ostomy output. -Monitor F/E/N - LR at 125mL/hr x 1 liter, BMP q 8 hours, CC/Renal diet as tolerated Ppx - SCDs Code - Full Dispo - Admit to medical with telemetry (2) Acute hyperkalemia: (3) H/O colectomy: (4) Type 2 diabetes mellitus: (5) First degree AV block: (6) Stage 3b chronic kidney disease: (7) Hypothyroidism: (8) Essential hypertension: (9) Bipolar I disorder, most recent episode (or current) manic: Admission and Anticipated Discharge Date Admission Date: April 13, 2022 Physical Exam Constitutional: NAD. Vitals WNL. Eyes: no conjunctival abnormality Respiratory: CTA bilaterally. No rhonchi, wheezing, or crackles. Non labored breathing. Cardiovascular: RRR. No murmur noted. No LL edema. Gastrointestinal (Abdomen): Nontender, +BS. No masses noted. Skin: no rashes, warm and dry Psychiatric: Alert. Mood and affect congruent. Results & Data Results & Data ([facility]) Vital Signs (Past 12 Hours) Vital Signs Temp Pulse Pulse Resp BP Pulse Ox O2 Del Method 04/14/22 07:47 61 04/14/22 04:00 37.4 C 61 19 106/54 L 96 Room Air 04/14/22 01:49 66 04/13/22 23:00 36.7 C 59 L 20 112/50 L 98 Room Air 04/13/22 23:00 36.7 C 73 18 117/56 L 97 Room Air 04/13/22 22:42 Room Air 04/13/22 22:42 36.7 C 75 18 116/57 L 99 Room Air 04/13/22 21:00 88 22 150/70 H 97 Room Air
[2022-04-14] MEDS: ASPIRIN 81 MG ECTAB PO SCH (08:18)
[2022-04-14] MEDS: LITHIUM CARBONATE 300 MG TAB PO SCH (08:19)
[2022-04-14] MEDS: ATORVASTATIN 10 MG TAB PO SCH (08:19)
[2022-04-14] MEDS: INSULIN ASPART PER UNIT SC SCH ×4 (08:20→20:13)
[2022-04-14] MEDS: LANTUS PER UNIT CHARGE SQ SCH ×2 (08:20→20:13)
[2022-04-14 08:24] LABS: Hematocrit (blood only) 34.8 % (40.1-51.0); Hemoglobin 12.2 g/dl (14.0-18.0); Mean Corpuscular Hgb Conc 35.1 g/dL (32.0-36.0); Mean Corpuscular Volume 99.7 fL (80.0-100.0); Mean Platelet Volume 12.2 fL (9.4-12.4); Platelet Count 116 K/uL (130-400); RDW Coefficient of Variation 12.3 % (11.5-14.5); RDW Standard Deviation 45.1 fL (36.4-46.3); Red Blood Count 3.49 M/uL (4.63-6.08); White Blood Count 7.96 K/ul (4.8-10.8)
[2022-04-14 08:46] LABS: BUN Creatinine Ratio 32.9 (10-20); Calcium 9.5 mg/dl (8.5-10.1); Creatinine Clr Calc Pharmacy 35.8 ml/min; Est GFR (African American) 28.2 ml/min; Est GFR (Non-African American) 24.3 ml/min; Potassium 4.8 mmol/L (3.5-5.1)
--- NOTE | 2022-04-14 09:50 | Electrocardiogram Report ---
Test Reason : Blood Pressure : / mmHG Vent. Rate : 073 BPM Atrial Rate : 073 BPM P-R Int : 226 ms QRS Dur : 110 ms QT Int : 356 ms P-R-T Axes : 096 039 -04 degrees QTc Int : 392 ms Poor data quality, interpretation may be adversely affected Sinus rhythm with 1st degree A-V block Low voltage QRS Incomplete left bundle block Nonspecific ST and T wave abnormality Abnormal ECG When compared with ECG of 12-APR-2021 10:15, NM interval has increased Incomplete left bundle block is now Present Confirmed by Kenyon Metz ([id number]) on 04/14/2022 9:50:33 AM Referred By: So Coughlin Confirmed By:Kenyon Metz
--- NOTE | 2022-04-14 09:51 | Electrocardiogram Report ---
Test Reason : Blood Pressure : / mmHG Vent. Rate : 072 BPM Atrial Rate : 072 BPM P-R Int : 226 ms QRS Dur : 126 ms QT Int : 368 ms P-R-T Axes : 088 031 041 degrees QTc Int : 402 ms Sinus rhythm with 1st degree A-V block Left bundle branch block Abnormal ECG When compared with ECG of 13-APR-2022 17:53, (unconfirmed) No significant change Confirmed by Kenyon Metz ([id number]) on 04/14/2022 9:51:10 AM Referred By: So Coughlin Confirmed By:Kenyon Metz
--- NOTE | 2022-04-14 10:37 | Nephrology Consultation ---
Date of Consultation April 14, 2022 Assessment & Plan (1) DINORAH (acute kidney injury): * Nonoliguric DINORAH/CKD. Urine sediment is acellular. UACR < 0.1. Renal US to my review (report not yet available) shows normal size kidneys without hydronephrosis. Bladder appears distended * Continue to hold lisinopril * Agree w/ gentle hydration. Although FeNa > 1% patient appears volume contracted. Cr is mildly improved from admission w/ IVF * Will order PVR. If > 100 cc consider Manrique catheter insertion and Urology evaluation * Monitor PRP, UO (2) Stage 3b chronic kidney disease: * CKD stage G3b/A1 (moderate impairment). Baseline Cr 1.7 w/ EGFR 38 cc/min. Urine sediment has been non-nephritic. UACR < 0.2. Renal US 04/18 - normal size kidneys without obstruction. CKD is due to microvascular disease and interstitial scarring associated w/ manager terminal lithium therapy (3) Essential hypertension: * BP remains acceptable. Hold lisinopril (4) Anemia: * Mild, asymptomatic anemia. No acute indication for MO therapy at this time (5) Type 2 diabetes mellitus: * Hold metformin due to DINORAH (6) BPH (benign prostatic hyperplasia): * Awaiting renal US report for bladder dimensions * Will order PVR History of Present Illness Reason for Consultation: DINORAH/CKD Attending Physician: Kajal Jara MD History of Present Illness Mr. Snow is a 72 year old white male who is seen at the request of the [facility] [place] for evaluation of DINORAH/CKD. Medical records in the EMR were reviewed today and are summarized as follows: Mr. Snow has CKD stage G3b/A1 (moderate impairment). His outpatient Business Banker is Dr. Coughlin. Prior evaluation revealed baseline Cr 1.7 w/ EGFR 38 cc/min. Urine sediment has been non-nephritic. UACR < 0.2. Renal US 04/18 - normal size kidneys without obstruction. Mr. Snow's CKD has been attributed to microvascular disease and interstitial scarring associated w/ manager terminal lithium therapy. Mr. Snow's medical history is also significant for AODM, HTN, bipolar disorder, tobacco use, COVID + 04/17, total colectomy w/ ileostomy 10/06 [place] [facility] [place] due to C. Difficile complicated by abscess formation. Mr. Snow reports difficulty voiding in the morning. After the 1st void of the day he has no other difficulty. He denies the regular use of NSAIDS and has no recent exposure to nephrotoxic medications. Mr. Snow does report that in February his BP had been elevated and Lisinopril dose was increased from 2.5 to 10 mg daily. Yesterday Mr. Snow had blood work completed for his Stove Cleaner. Cr was noted to have increased to 3.3. Nephrology was contacted and hospitalization was advised Allergies Allergy/AdvReac Type Severity Reaction Status Date / Time adhesive tape Allergy Verified 03/14/22 10:14 latex Allergy Verified 03/14/22 10:14 No Known Drug Allergies Allergy Verified 03/14/22 10:14 Home Medications Medication Instructions Recorded Confirmed Type mecobalamin (vitamin B12) 1,000 1,000 mcg sublingual QAM 12/13/18 04/13/22 History mcg disintegrating tablet,sublingual multivitamin with iron 1 tab PO QAM 05/07/19 04/13/22 History quetiapine 300 mg tablet 600 mg PO HS 06/03/19 04/13/22 History pen needle, diabetic 32 gauge x #300 ea 09/16/19 04/13/22 Rx 5/32" (BD Ultra-Fine Ngozi Pen Needle) aspirin 81 mg tablet,delayed 81 mg PO QAM 04/12/21 04/13/22 History release metformin 500 mg tablet 500 mg PO BID #180 tabs 09/06/21 04/13/22 Rx lithium carbonate 150 mg capsule 150 mg PO DAILY 09/12/21 04/13/22 History omeprazole 20 mg capsule,delayed 20 mg PO QAM #90 caps 11/22/21 04/13/22 Rx release blood sugar diagnostic (OneTouch 12/13/21 04/13/22 History Verio test strips) blood-glucose sensor (Dexcom G6 12/13/21 04/13/22 History Sensor device) blood-glucose transmitter (Dexcom 12/13/21 04/13/22 History G6 Transmitter device) cholecalciferol (vitamin D3) 50 50 mcg PO DAILY 12/13/21 04/13/22 History mcg (2,000 unit) capsule empagliflozin 10 mg tablet 10 mg PO DAILY #90 tabs 12/13/21 04/13/22 Rx (Jardiance) insulin aspar prot-insulin aspart 23 unit (0.23 mL) subcut BID #3 12/13/21 04/13/22 Rx 100 unit/mL (70-30) subcutaneous Boxes pen (Novolog Mix 70-30FlexPen U-100) levothyroxine 50 mcg tablet 50 mcg PO DAILYBB #90 tabs 02/13/22 04/13/22 Rx atorvastatin 10 mg tablet 10 mg PO QAM #90 tabs 02/28/22 04/13/22 Rx lisinopril 10 mg tablet 10 mg PO QAM #30 tabs 03/14/22 04/13/22 Rx semaglutide 0.25 mg or 0.5 mg (2 0.5 mg subcut .weekly 03/14/22 04/13/22 History mg/1.5 mL) subcutaneous pen injector (Ozempic) fluocinonide 0.05 % topical 1 applic topical DAILY 04/13/22 04/13/22 History solution omega-3 fatty acids 1,000 mg 1,000 mg PO DAILY 04/13/22 04/13/22 History capsule zinc acetate 50 mg (zinc) capsule 50 mg PO DAILY 04/13/22 04/13/22 History Patient History Medical History Anemia Bipolar I disorder, most recent episode (or current) manic Chronic kidney disease, stage III (moderate) Colostomy present Dyslipidemia First degree AV block GERD without esophagitis Hypothyroidism Loss of protective sensation of skin of foot Obesity (BMI 30-39.9) Peripheral neuropathy Proteinuria Schizoaffective disorder Stage 3b chronic kidney disease Type 2 diabetes mellitus Type 2 diabetes mellitus with chronic kidney disease, with long-term current use of insulin Vitamin D deficiency Surgical History H/O colectomy (09/2011) Total Colectomy w/ Proctectomy, ileostomy, September 2011. Secondary to Cdiff/abscess History of tracheostomy S/P cataract surgery S/P eye surgery 2 retinal sx on L eye 1 on R eye S/P tooth extraction Family History Brother Myocardial infarction Coronary heart disease Father Congestive heart failure Diabetes Mother Coronary heart disease Denies family history of Ovarian cancer Prostate cancer Breast cancer Colorectal cancer Social History Smoking Status: Current every day smoker Tobacco Type: Cigarettes packs per day: 1; Second Hand Exposure: Yes; Do You Dip or Chew Tobacco: No; Hx Alcohol Use: Yes Hx Substance Use: No Preferred Language: Finnish Communication Ability: Effective Visual Impairment: Blindness Hearing Ability: Normal Training Designer Required: No Beliefs That Will Affect Care: None marital status: Current Living Situation: Spouse current occupational status: retired 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 ) during the past year weight has: remained stable Dental Care, Regularly: No Physical Activity Frequency: Daily Physical Activity Frequency Comment: walk Seatbelt Use: always Sunscreen Use: Yes Assistive Devices: Cane, Denture - Upper, Denture - Lower and Glasses Review of Systems Constitutional: no fever Eyes: no problem reported Ear, Nose, Mouth, Throat: no problem reported Respiratory: no cough and no dyspnea Cardiovascular: no chest pain and no palpitations Additional Comments: trace LE swelling Gastrointestinal: no abdominal pain and no diarrhea/loose stools Genitourinary: + urinary hesitancy Physical Exam Constitutional: not in distress Eyes: PERRL, conjunctivae normal, anicteric sclerae ENMT: external ear and nose normal, oropharynx normal Neck: trachea midline, no thyromegaly Respiratory: normal respiratory effort, lungs clear to auscultation Cardiovascular: Rate/Rhythm: regular rate and regular rhythm Extremities: no edema Gastrointestinal (Abdomen): normal bowel sounds, soft, nontender, no hepatosplenomegaly RLQ ileostomy w/ liquid brown stool in collection bag Neurologic: awake; not confused Speech / Cognition: normal cognition Results & Data ([facility]) Vital Signs (Past 12 Hours) Vital Signs Temp Pulse Pulse Pulse Resp BP Pulse Ox 04/14/22 08:25 37.0 C 60 17 120/72 96 04/14/22 08:14 37.1 C 68 20 101/55 L 96 04/14/22 07:47 61 04/14/22 04:00 37.4 C 61 19 106/54 L 96 04/14/22 01:49 66 04/13/22 23:00 36.7 C 59 L 20 112/50 L 98 04/13/22 23:00 36.7 C 73 18 117/56 L 97 04/13/22 22:42 04/13/22 22:42 36.7 C 75 18 116/57 L 99 O2 Del Method 04/14/22 08:25 Room Air 04/14/22 08:14 Room Air 04/14/22 07:47 04/14/22 04:00 Room Air 04/14/22 01:49 04/13/22 23:00 Room Air 04/13/22 23:00 Room Air 04/13/22 22:42 Room Air 04/13/22 22:42 Room Air Laboratory Results Laboratory Tests 03/10/22 04/13/22 04/13/22 10:14 17:55 21:25 WBC Hgb Hct Plt Count Sodium Potassium Chloride Carbon Dioxide BUN Creatinine 1.70 H Glucose Calcium Albumin 4.3 Random Cortisol Urine Color Yellow Urine Appearance Clear Urine pH 5.0 Ur Specific [place] 1.015 Urine Protein Negative Urine Glucose (UA) 2+ H Urine Ketones Negative Urine Blood Negative Urine Nitrite Negative Ur Leukocyte Esterase Negative Urine Osmolality Ur Random Creatinine Ur Random Sodium 04/13/22 04/13/22 04/13/22 21:25 22:52 23:30 WBC Hgb Hct Plt Count Sodium 135 L Potassium 6.1 H* Chloride 111 H Carbon Dioxide 18 L BUN 93 H Creatinine 2.99 H Glucose 107 H Calcium Albumin Random Cortisol Urine Color Urine Appearance Urine pH Ur Specific [place] Urine Protein Urine Glucose (UA) Urine Ketones Urine Blood Urine Nitrite Ur Leukocyte Esterase Urine Osmolality 473 L Ur Random Creatinine 60.4 Ur Random Sodium 62 04/14/22 04/14/22 04/14/22 08:08 08:08 08:08 WBC 7.96 Hgb 12.2 L Hct 34.8 L Plt Count 116 L Sodium 135 L Potassium 4.8 D Chloride 110 H Carbon Dioxide 18 L BUN 83 H Creatinine 2.52 H D Glucose 119 H Calcium 9.5 Albumin Random Cortisol Pending Urine Color Urine Appearance Urine pH Ur Specific [place] Urine Protein Urine Glucose (UA) Urine Ketones Urine Blood Urine Nitrite Ur Leukocyte Esterase Urine Osmolality Ur Random Creatinine Ur Random Sodium PG Care Time/CCT Total # of Minutes Spent Total Time Spent with Patient: Total time spent is greater than 50% in coordination of care (as documented) at patient's floor/unit and/or counseling patient: Coding Level of Care Code 32672 Inpt Consult Level 5 Diagnoses DINORAH (acute kidney injury) N17.9 Stage 3b chronic kidney disease N18.32 Essential hypertension I10 Anemia D64.9 Type 2 diabetes mellitus E11.9 BPH (benign prostatic hyperplasia) N40.0
[2022-04-14] MEDS: SODIUM CHLORIDE 0.9% 1000ML 1,000 ML IV SCH ×2 (11:34→20:14)
--- NOTE | 2022-04-14 13:04 | Medical Student Progress Note ---
Date of Service April 14, 2022 Assessment & Plan (1) DINORAH (acute kidney injury): Plan: Tereza Snow is a 72yo male with PMH significant for HTN, DM, Hypothyroidism, Bipolar and CKD III who was referred to ED yesterday by Dr. Coughlin, his paper rewinder, due to abnormal labs which showed worsening renal function and hyperkalemia. Nonoliguric DINORAH/CKD. Urine sediment is acellular. UACR < 0.1. Most recent creatinine 2.32 (down from 3.28), BUN 76 (down from 93). -Per nephro consult, continue hydration with NS -continue holding lisinopril -Renal US revealed normal sized kidneys without evidence of hydronephrosis. Incidental finding of 0.8cm cyst in L kidney. -Bladder scan showed post void residue 302cc. Nephro recommended Manrique insertion and urology consult for >100cc. Consult placed - will defer to urology wrt catheterization. (2) Acute hyperkalemia: Plan: K=5.1 (down from 6.1) No acute EKG changes.1st degree AV block present. Hyperkalemia in setting of DINORAH on CKD.Possibly related to recent increase in Lisinopril dosing. -Telemetry monitoring -Holding Lisinopril -BMP q 8 hours (3) Lower extremity edema: Plan: Mild lower extremity edema reported began 6 months ago. In the setting of a new EKG changes, further cardiac workup recommended. "Sinus rhythm with 1st degree A-V block with occasional Premature ventricular complexes Low voltage QRS Incomplete left bundle block Nonspecific ST and T wave abnormality Abnormal ECG" -BNP 28 -Echo pending. -Suggested sleep study outpatient for potential sleep apnea (4) Stage 3b chronic kidney disease: Plan: Baseline Cr 1.7 w/ EGFR 38 cc/min. CKD likely result of microvascular disease and interstitial scarring associated w/ terminal manager lithium therapy. Currently treating DINORAH, as above. (5) Type 2 diabetes mellitus: Plan: Home regimen: Metformin, Insulin 70/30 23u BID semaglutide and empagliflozin. Last [id number]=6.3 (04/13/22). Well controlled. -Continue to hold metformin due to DINORAH -Hold Semaglutide and Empagliflozin for now -Lantus 10u BID -Goal blood glucose 110-140 (6) Essential hypertension: Plan: BP wnl 123/62 most recently. -Hold lisinopril due to DINORAH (7) Anemia: Plan: Mild macrocytic anemia that is stable and asymptomatic in setting of CKD. Patient is on Vitamin B12 supplementation. Hgb= 13-->12.2, Hct= 36.7-->34.8 Macrocytosis with HKD=922.8. -Continue B12 outpatient -Monitor CBC -No acute indication for MO therapy at this time (8) Bipolar I disorder, most recent episode (or current) manic: Plan: Moods stable and well controlled. -Serum [place] low (0.4) -Continue home lithium (9) Hypothyroidism: Plan: Chronic. Well controlled on current regimen. Last TSH = 1.397 (09/06/21) -Continue Synthroid 50mcg po daily (10) Dyslipidemia: Plan: Chronic. -Continue Atorvastatin 10mg po daily Plan FEN/GI: carb consistent DVT PPx: SCDs Code: Full code Dispo: Telemetry Admission and Anticipated Discharge Date Admission Date: April 13, 2022 Supervising Attestation Medical Student Supervision Note: I was personally present during medical student patient encounter and independently interviewed and examined the patient and verified the javier history and physical, reviewed labs and image studies, discussed the case with Kamille Herrera and agree with the findings and care plan. Hyperkalemia with DINORAH in CKD 3 - K normalized with IV hydration, insulin/calcium. continue IV hydration. renal ultrasound with no obstructive findings. PVR >300. urology consult. Holding metformin. No nephrotoxic meds. Lisinopril on hold. CKD is due to microvascular disease and interstitial scarring associated w/ terminal manager lithium therapy Leg edema - report of shortness of breath. received lasix in ED. check echo and bnp. Subjective Tereza Snow is a 72yo male with PMH significant for HTN, DM, Hypothyroidism, Bipolar and CKD III who was referred to ED yesterday by Dr. Coughlin, his paper rewinder, due to abnormal labs which showed worsening renal function and hyperkalemia. Patient had routine labs performed 04/13/22 by his Endocrinology team. Baseline Cr of approximately 1.7 which doubled to >3, potassium 5.8 outpatient. Patient overall has no complaints. He denies fever, chills, cough, SOB, chest pain. He has not had nausea or vomiting. He has a colostomy and reports several days of watery output but most recently has been normal. Patient reports decreased appetite over the last week. He has not been eating as much but has been trying to drink more water. Reports food tastes fine. He is able to urinate without difficulty and reports his urine is clear and yellow with no blood, foam or sediment. Possibly decreased urine output over the last several days. Patient did have his Lisinopril increased on 03/14/22 from 5 to 10 mg daily. In the ER he was afebrile, hemodynamically stable, NAD. EKG obtained with abnormal findings, see results below. Pt was diuresed with IV Lasix 40mg. A lbuterol 2.5mg neb administered. No acute overnight events. Pt reports feeling fine and somewhat confused wrt our reasoning for admitting him to hospital. He is wondering about discharge home today given that he feels well. No chest pain, palpitations, lightheadedness, abd pain. Review of Systems Constitutional: no fever Eyes: no problem reported Ear, Nose, Mouth, Throat: no problem reported Respiratory: no cough and no dyspnea Cardiovascular: no chest pain and no palpitations Additional Comments: trace LE swelling Gastrointestinal: no abdominal pain Physical Exam Constitutional: well developed; no acute distress Neck: normal visual inspection Respiratory: normal respiratory effort, lungs clear to auscultation Cardiovascular: Rate/Rhythm: regular rate and regular rhythm Heart Sounds: no murmur Vessels: dorsalis pedis pulses present and radial pulses present 1+ LE edema bilaterally Gastrointestinal (Abdomen): Inspection/Auscultation: abdomen normal to inspection Soft, nontender, nondistended. Ostomy present. Skin: no rashes, warm and dry Neurologic: moves all extremities and awake Speech / Cognition: normal cognition Psychiatric: A+Ox3, euthymic affect Results & Data ([facility]) Vital Signs (Past 12 Hours) Vital Signs Temp Pulse Pulse Pulse Resp BP Pulse Ox 04/14/22 11:53 37.0 C 67 20 123/62 98 04/14/22 10:40 04/14/22 08:25 37.0 C 60 17 120/72 96 04/14/22 08:14 37.1 C 68 20 101/55 L 96 04/14/22 07:47 61 04/14/22 04:00 37.4 C 61 19 106/54 L 96 04/14/22 01:49 66 O2 Del Method 04/14/22 11:53 Room Air 04/14/22 10:40 Room Air 04/14/22 08:25 Room Air 04/14/22 08:14 Room Air 04/14/22 07:47 04/14/22 04:00 Room Air 04/14/22 01:49 Laboratory Results 04/14/22 08:08 04/14/22 08:08 ECG Additional Comments: DICTATED BY:Kenyon Metz MD Test Reason : Blood Pressure : / mmHG Vent. Rate : 063 BPM Atrial Rate : 063 BPM P-R Int : 224 ms QRS Dur : 120 ms QT Int : 392 ms P-R-T Axes : 089 056 055 degrees QTc Int : 401 ms Sinus rhythm with 1st degree A-V block with occasional Premature ventricular complexes Low voltage QRS Incomplete left bundle block Nonspecific ST and T wave abnormality Abnormal ECG When compared with ECG of 13-APR-2022 17:54, (unconfirmed) Premature ventricular complexes are now Present T wave inversion now evident in Anterior leads Confirmed by Kenyon Metz ([id number]) on 04/14/2022 1:33:52 PM Referred By: So Coughlin Confirmed By:Kenyon Metz
--- NOTE | 2022-04-14 13:34 | Electrocardiogram Report ---
Test Reason : Blood Pressure : / mmHG Vent. Rate : 063 BPM Atrial Rate : 063 BPM P-R Int : 224 ms QRS Dur : 120 ms QT Int : 392 ms P-R-T Axes : 089 056 055 degrees QTc Int : 401 ms Sinus rhythm with 1st degree A-V block with occasional Premature ventricular complexes Low voltage QRS Incomplete left bundle block Nonspecific ST and T wave abnormality Abnormal ECG When compared with ECG of 13-APR-2022 17:54, (unconfirmed) Premature ventricular complexes are now Present T wave inversion now evident in Anterior leads Confirmed by Kenyon Metz ([id number]) on 04/14/2022 1:33:52 PM Referred By: So Coughlin Confirmed By:Kenyon Metz
--- NOTE | 2022-04-14 14:08 | Ultrasound Report ---
US renal/blad retro comp CLINICAL HISTORY: DINORAH on CKD TECHNIQUE: Multiple sonographic real-time images of the kidneys and bladder were obtained. COMPARISON: Comparison is made to renal ultrasound 09/22/2020 FINDINGS: The right kidney measures 11.4 cm in length, and the left kidney measures 11.4 cm in length. The right kidney is normal in size, there is suggestion of scarring. No hydronephrosis is identified. No renal lesion is identified. No perinephric fluid collection is seen. The left kidney is normal in size, contour, cortical thickness and echogenicity. No hydronephrosis i s identified. A 0.8 cm cyst is noted. No perinephric fluid collection is seen. The bladder is partially distended. No large intraluminal mass is seen. IMPRESSION: Unremarkable examination and in particular no evidence of hydronephrosis. ACT 112: Negative or not required by law. Electronically signed by: Ghassan Holcomb M.D. 04/14/2022 2:07 PM
[2022-04-14 15:47] LABS: BUN Creatinine Ratio 32.8 (10-20); Calcium 9.3 mg/dl (8.5-10.1); Creatinine Clr Calc Pharmacy 38.9 ml/min; Est GFR (African American) 31.1 ml/min; Est GFR (Non-African American) 26.9 ml/min; Potassium 5.1 mmol/L (3.5-5.1)
--- NOTE | 2022-04-14 22:21 | Urology Consultation ---
Date of Consultation April 14, 2022 Assessment & Plan (1) BPH (benign prostatic hyperplasia): Patient has been admitted on the hospitalist service. Recommend proceeding as follows: Avoid nephrotoxins Continue to follow serial labs Continue to monitor postvoid residuals. As noted the patient has not taken any medications to assist with this problem. Consideration can be given to placing the patient on a medication such as Flomax. We will defer this to the medical service to ensure that there are no interactions with his numerous other medications. Further recommendations will be made based on patient's clinical course as it unfolds. History of Present Illness Attending Physician: Kajal Jara MD History of Present Illness This is a 72-year-old male who was admitted to [facility] secondary to worsening renal function as well as hyperkalemia. Overall the patient does not really offer much in the way of complaints. He did not have any fevers or chills. He denies any abdominal pain or nausea or vomiting. Due to his worsening renal function patient was evaluated by nephrology. Part of the nephrology evaluation included checking postvoid residual which was noted to be 302 cc. Because of this urology consultation was requested. I did question the patient on urologic symptoms and he does note that at times it takes him longer than usual to initiate a urine stream. He also notes that his urine stream appears to be weaker than what it once was. He does feel that at times he cannot empty his bladder but other times he feels as though he does fully empty his bladder. He denies any dysuria or hematuria. He denies any back or flank pain. The patient also adds that he has never taken any medications to assist with such urologic issues. Since admission to the hospital the patient has had labs and imaging which independent reviewed. Chest x-ray was negative for pneumonia or other acute cardiopulmonary findings. Patient did have a renal ultrasound that showed no evidence of hydronephrosis with normal-sized kidneys. Labs most recently performed today include a CBC her white blood cell count was normal. Hemoglobin and hematocrit are 12.2 and 34.8. Platelet count was 116,000. Chemistry profile showed sodium and potassium were normal. Patient's BUN and creatinine were 76 and 2.32. At time of admission patient's creatinine was 3.2. Review of records show that his baseline appears to run between 1.5 and 1.8. The patient's records were reviewed to see if he has had a PSA checked and the most recent 1 available for review was in July 2017. At this time his PSA was noted to be within the normal range. At the time of my interview he was resting comfortably in bed he was in no distress. Allergies Allergy/AdvReac Type Severity Reaction Status Date / Time adhesive tape Allergy Verified 03/14/22 10:14 latex Allergy Verified 03/14/22 10:14 No Known Drug Allergies Allergy Verified 03/14/22 10:14 Home Medications Medication Instructions Recorded Confirmed Type mecobalamin (vitamin B12) 1,000 1,000 mcg sublingual QAM 12/13/18 04/13/22 History mcg disintegrating tablet,sublingual multivitamin with iron 1 tab PO QAM 05/07/19 04/13/22 History quetiapine 300 mg tablet 600 mg PO HS 06/03/19 04/13/22 History pen needle, diabetic 32 gauge x #300 ea 09/16/19 04/13/22 Rx 5/32" (BD Ultra-Fine Ngozi Pen Needle) aspirin 81 mg tablet,delayed 81 mg PO QAM 04/12/21 04/13/22 History release metformin 500 mg tablet 500 mg PO BID #180 tabs 09/06/21 04/13/22 Rx lithium carbonate 150 mg capsule 150 mg PO DAILY 09/12/21 04/13/22 History omeprazole 20 mg capsule,delayed 20 mg PO QAM #90 caps 11/22/21 04/13/22 Rx release blood sugar diagnostic (Oneuch 12/13/21 04/13/22 History Verio test strips) blood-glucose sensor (Dexcom G6 12/13/21 04/13/22 History Sensor device) blood-glucose transmitter (Dexcom 12/13/21 04/13/22 History G6 Transmitter device) cholecalciferol (vitamin D3) 50 50 mcg PO DAILY 12/13/21 04/13/22 History mcg (2,000 unit) capsule empagliflozin 10 mg tablet 10 mg PO DAILY #90 tabs 12/13/21 04/13/22 Rx (Jardiance) insulin aspar prot-insulin aspart 23 unit (0.23 mL) subcut BID #3 12/13/21 04/13/22 Rx 100 unit/mL (70-30) subcutaneous Boxes pen (Novolog Mix 70-30FlexPen U-100) levothyroxine 50 mcg tablet 50 mcg PO DAILYBB #90 tabs 02/13/22 04/13/22 Rx atorvastatin 10 mg tablet 10 mg PO QAM #90 tabs 02/28/22 04/13/22 Rx lisinopril 10 mg tablet 10 mg PO QAM #30 tabs 03/14/22 04/13/22 Rx semaglutide 0.25 mg or 0.5 mg (2 0.5 mg subcut .weekly 03/14/22 04/13/22 History mg/1.5 mL) subcutaneous pen injector (Histros) fluocinonide 0.05 % topical 1 applic topical DAILY 04/13/22 04/13/22 History solution omega-3 fatty acids 1,000 mg 1,000 mg PO DAILY 04/13/22 04/13/22 History capsule zinc acetate 50 mg (zinc) capsule 50 mg PO DAILY 04/13/22 04/13/22 History Patient History Medical History Anemia Bipolar I disorder, most recent episode (or current) manic Chronic kidney disease, stage III (moderate) Colostomy present Dyslipidemia First degree AV block GERD without esophagitis Hypothyroidism Loss of protective sensation of skin of foot Obesity (BMI 30-39.9) Peripheral neuropathy Proteinuria Schizoaffective disorder Stage 3b chronic kidney disease Type 2 diabetes mellitus Type 2 diabetes mellitus with chronic kidney disease, with long-term current use of insulin Vitamin D deficiency Surgical History H/O colectomy (09/2011) Total Colectomy w/ Proctectomy, ileostomy, September 2011. Secondary to Cdiff/abscess History of tracheostomy S/P cataract surgery S/P eye surgery 2 retinal sx on L eye 1 on R eye S/P tooth extraction Family History Brother Myocardial infarction Coronary heart disease Father Congestive heart failure Diabetes Mother Coronary heart disease Denies family history of Ovarian cancer Prostate cancer Breast cancer Colorectal cancer Social History Smoking Status: Current every day smoker Tobacco Type: Cigarettes packs per day: 1; Second Hand Exposure: Yes; Do You Dip or Chew Tobacco: No; Hx Alcohol Use: Yes Hx Substance Use: No Preferred Language: Khmer Communication Ability: Effective Visual Impairment: Blindness Hearing Ability: Normal Supply Analyst Required: No Beliefs That Will Affect Care: None marital status: Current Living Situation: Spouse current occupational status: 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 ) during the past year weight has: remained stable Dental Care, Regularly: No Physical Activity Frequency: Daily Physical Activity Frequency Comment: walk Seatbelt Use: always Sunscreen Use: Yes Assistive Devices: Cane and Walker Review of Systems Constitutional: no fever and no chills Eyes: no eye pain Ear, Nose, Mouth, Throat: no ear pain Respiratory: no cough and no dyspnea Cardiovascular: no chest pain Gastrointestinal: no abdominal pain, no nausea and no vomiting Genitourinary: + as per Subjective / HPI Musculoskeletal: no back pain Integumentary: no rash Neurologic: no localized weakness Physical Exam Constitutional: well developed and well nourished; no acute distress Eyes: no conjunctival abnormality ENMT: Ears: no hearing impairment and no external ear abnormality Mouth: no oropharynx abnormality Neck: trachea midline Respiratory: normal respiratory effort; no respiratory distress and no labored breathing Cardiovascular: Rate/Rhythm: regular rate and regular rhythm Gastrointestinal (Abdomen): Abdomen is soft, nonrigid, nontender, nondistended. The patient did have a colostomy noted in the left lower quadrant. Musculoskeletal: No calf tenderness Skin: no rashes Neurologic: moves all extremities Psychiatric: A+Ox3, euthymic affect Genitourinary: no CVA tenderness Results & Data ([facility]) Vital Signs (Past 12 Hours) Vital Signs Temp Pulse Pulse Pulse Resp BP Pulse Ox 04/14/22 19:31 36.9 C 63 18 128/49 L 98 04/14/22 15:16 54 L 04/14/22 14:56 37.0 C 70 20 152/66 H 97 04/14/22 12:00 37.2 C 62 17 118/68 96 04/14/22 11:53 37.0 C 67 20 123/62 98 04/14/22 10:40 O2 Del Method 04/14/22 19:31 Room Air 04/14/22 15:16 04/14/22 14:56 Room Air 04/14/22 12:00 Room Air 04/14/22 11:53 Room Air 04/14/22 10:40 Room Air PG Care Time/CCT Total # of Minutes Spent Total Time Spent with Patient: Total time spent is greater than 50% in coordination of care (as documented) at patient's floor/unit and/or counseling patient: Coding Level of Care Code 18685 Inpt Consult Level 5 Diagnoses BPH (benign prostatic hyperplasia) N40.0
[2022-04-14 23:49] LABS: BUN Creatinine Ratio 30.3 (10-20); Calcium 8.8 mg/dl (8.5-10.1); Creatinine Clr Calc Pharmacy 38.6 ml/min; Est GFR (African American) 30.8 ml/min; Est GFR (Non-African American) 26.6 ml/min; Potassium 5.4 mmol/L (3.5-5.1)
[2022-04-15] LABS: Free PSA % 34.4 %; Prostate SpecificAg Diagnostic 0.698 ng/ml (0-4)
[2022-04-15] MEDS: SODIUM CHLORIDE 0.9% 1000ML 1,000 ML IV SCH ×2 (03:36→11:30)
[2022-04-15] MEDS: LEVOTHYROXINE SODIUM 50 MCG TABLET PO SCH (05:25)
--- NOTE | 2022-04-15 07:02 | Hospitalist Progress Note ---
Date of Service April 15, 2022 Assessment & Plan (1) DINORAH (acute kidney injury): Plan: Tereza Snow is a 72yo male with PMH significant for HTN, DM, Hypothyroidism, Bipolar and CKD III who was referred to ED yesterday by Dr. Coughlin, his dental detail representative, due to abnormal labs which showed worsening renal function and hyperkalemia. -Per nephro consult, continue hydration with NS at 125 mL/hr -continue holding lisinopril -Renal US revealed normal sized kidneys without evidence of hydronephrosis. Incidental finding of 0.8cm cyst in L kidney. (2) Acute hyperkalemia: Plan: - K=4.8 (down from peak 6.1) - recent increase in lisinopril could be cause - No acute EKG changes; 1st degree AV block present - Telemetry monitoring - Holding Lisinopril - BMP q8 hr (3) Lower extremity edema: Plan: Mild lower extremity edema reported began 6 months ago. In the setting of a new EKG changes, further cardiac workup recommended. - EKG showing incomplete LBBB and 1st degree AV block - BNP 28 -Echo -Suggested sleep study outpatient for potential sleep apnea (4) Stage 3b chronic kidney disease: Plan: - Baseline Cr 1.7 w/ EGFR 38 cc/min - CKD likely result of microvascular disease and interstitial scarring associated w/ custodial lithium therapy - currently treating DINORAH, as above (5) Type 2 diabetes mellitus: Plan: - Home regimen: Metformin, Insulin 70/30 23u BID semaglutide and empagliflozin. Last OpeL9J=9.3 (04/13/22). Well controlled. -Continue to hold metformin due to DINORAH -Hold Semaglutide and Empagliflozin for now -Lantus 10u BID -Goal blood glucose 110-140 (6) Essential hypertension: Plan: - BP running soft, 108/54 most recently. - Hold lisinopril due to DINORAH (7) Anemia: Plan: - Mild macrocytic anemia that is stable and asymptomatic in setting of CKD. Patient is on Vitamin B12 supplementation. - admission Hgb of 13.0, next day 12.2 -Continue B12 outpatient -No acute indication for MO therapy at this time (8) Bipolar I disorder, most recent episode (or current) manic: Plan: - Moods stable and well controlled. -Serum [place] low (0.4) -Continue home lithium (9) Hypothyroidism: Plan: - Chronic. Well controlled on current regimen. Last TSH = 1.397 (09/06/21) -Continue Synthroid 50mcg po daily (10) Dyslipidemia: Plan: - Chronic -Continue Atorvastatin 10mg po daily (11) Urinary retention with incomplete bladder emptying: Plan: - Pt feels he is able to empty bladder completely- no issues w/ urination - Bladder scan showed post void residue 302cc. Nephro recommended Manrique insertion and urology consult for >100cc - uro recommended addition of tamsulosin depending on interactions w/ pt's other medications - addition of tamsulosin could cause enhanced hypotensive effect of quetiapine; counseled pt concerning this - begin 0.4 mg daily Plan FEN/GI: carb consistent DVT PPx: SCDs Code: Full code Dispo: Telemetry Admission and Anticipated Discharge Date Admission Date: April 13, 2022 Lisa Snow is a 72yo male with PMH significant for HTN, DM, Hypothyroidism, Bipolar and CKD III who was referred to ED yesterday by Dr. Coughlin due to abnormal labs which showed worsening renal function and hyperkalemia. Patient had routine labs performed 04/13/22 by his Endocrinology team. Baseline Cr of approximately 1.7 which doubled to >3, potassium 5.8 outpatient. Pt feeling well today. He is hoping to go home today. He states he has been urinating w/o issue. He denies any changes in diet or drinking habits before admission. Denies chest pain, abdominal pain, leg pain, and SOB. Physical Exam Constitutional: NAD. Vitals WNL. Eyes: no conjunctival abnormality Respiratory: CTA bilaterally. No rhonchi, wheezing, or crackles. Non labored breathing. Cardiovascular: RRR. No murmur noted. No LL edema. Gastrointestinal (Abdomen): Nontender, +BS. No masses noted. Skin: no rashes, warm and dry Psychiatric: Alert. Mood and affect congruent. Results & Data Results & Data ([facility]) Vital Signs (Past 12 Hours) Vital Signs Temp Pulse Pulse Resp BP Pulse Ox O2 Del Method 04/15/22 06:57 53 L 04/15/22 02:48 36.9 C 59 L 18 100/47 L 96 Room Air 04/14/22 22:16 60 04/14/22 23:24 36.6 C 59 L 18 100/44 L 97 Room Air 04/14/22 20:00 Room Air 04/14/22 19:31 36.9 C 63 18 128/49 L 98 Room Air Resident Activity Tracking Resident Involvement: Resident Care Provided Care Provided: Adult Hospital Medicine
[2022-04-15 07:49] LABS: BUN Creatinine Ratio 31.6 (10-20); Calcium 8.5 mg/dl (8.5-10.1); Est GFR (African American) 40.4 ml/min; Est GFR (Non-African American) 34.9 ml/min; Potassium 4.8 mmol/L (3.5-5.1)
[2022-04-15] MEDS: INSULIN ASPART PER UNIT SC SCH ×2 (08:35→12:21)
[2022-04-15] MEDS: LANTUS PER UNIT CHARGE SQ SCH (08:36)
[2022-04-15] MEDS: LITHIUM CARBONATE 300 MG TAB PO SCH (08:40)
[2022-04-15] MEDS: ASPIRIN 81 MG ECTAB PO SCH (08:40)
[2022-04-15] MEDS: ATORVASTATIN 10 MG TAB PO SCH (08:40)
--- NOTE | 2022-04-15 10:32 | Nephrology Progress Note ---
Date of Service April 15, 2022 Assessment & Plan (1) DINORAH (acute kidney injury): (2) Acute hyperkalemia: (3) Stage 3b chronic kidney disease: (4) Obesity (BMI 30-39.9): (5) Anemia: (6) BPH (benign prostatic hyperplasia): Plan 72yo male with Stage 3B CKD, HTN, DM, Hypothyroidism, Bipolar admitted with DINORAH, Hyperkalemia, possibly pre renal, cr was 3.6 ( b/l cr 1.8 to 2.0) , rapidly improved with IV fluid and holding lisinopril. Overall doing well. There was concern for chronic LESTER due to BPH on Renal USG with high postvoid residual although voiding OK. --OK to be discharged from nephrology standpoint with outpt lab on Sunday/Sunday. --continue to hold Lisinopril on discharge --discontinue IV fluid, encouraged to maintain hydration when discharged, avoid all NSAID --seen by Urology for BPH and planning Flomax Will follow while inpatient, outpt f/u as currently scheduled. Admission and Anticipated Discharge Date Admission Date: April 13, 2022 Lisa Starks was seen and evaluated this morning. Overall he feels well, denies any concerns, eager to go home. Renal function improved, K normal. BP low but stable, asymptomatic. Hb stable. Review of Systems Review of Systems: Detail ROS was otherwise unremarkable. Physical Exam Constitutional: WD/WN, vitals as above no acute distress Eyes: + anicteric sclerae ENMT: Ears: no hearing impairment Neck: normal visual inspection Respiratory: Auscultation: lungs clear to auscultation bilaterally Cardiovascular: Rate/Rhythm: regular rate and regular rhythm Heart Sounds: normal S1 and normal S2 Extremities: no edema Skin: no rashes Neurologic: no focal motor deficits Psychiatric: Orientation: alert and oriented x 3 Results & Data ([facility]) Vital Signs (Past 12 Hours) Vital Signs Temp Pulse Pulse Resp BP Pulse Ox O2 Del Method 04/15/22 10:14 Room Air 04/15/22 07:33 37.2 C 60 20 108/54 L 98 Room Air 04/15/22 06:57 53 L 04/15/22 02:48 36.9 C 59 L 18 100/47 L 96 Room Air 04/14/22 23:24 36.6 C 59 L 18 100/44 L 97 Room Air PG Care Time/CCT Total # of Minutes Spent Total Time Spent with Patient: Total time spent is greater than 50% in coordination of care (as documented) at patient's floor/unit and/or counseling patient: Coding Level of Care Code 02626 Subseq Hosp Care Lvl 3 Diagnoses DINORAH (acute kidney injury) N17.9 Acute hyperkalemia E87.5 Stage 3b chronic kidney disease N18.32 Obesity (BMI 30-39.9) E66.9 Anemia D64.9 BPH (benign prostatic hyperplasia) N40.0
[2022-04-15 11:01] VITALS: PULSE 55; TEMP 98.1; O2SAT 99
[2022-04-15 11:45] VITALS: BP 108/54
--- NOTE | 2022-04-15 12:01 | Discharge Summary ---
Date of Service April 15, 2022 Admission HPI Per Admitting Provider Tereza Snow is a pleasant 72yo male with history of HTN, DM, Hypothyroidism, Bipolar and CKD III with baseline Cr of approximately 1.7 presenting with abnormal labs, worsening renal function and hyperkalemia. Patient had routine labs performed today by his Endocrinology team. He was contacted by Dr. Coughlin from Nephrology around 16:00 and told to come to the ER due to worsening renal function and hyperkalemia. Patient overall has no complaints. He denies fever, chills, cough, SOB, chest pain. He has not had nausea or vomiting. He has a colostomy and reports several days of watery output but most recently has been normal. Patient reports decreased appetite over the last week. He has not been eating as much but has been trying to drink more water. Reports food tastes fine. He is able to urinate without difficulty and reports his urine is clear and yellow with no blood, foam or sediment. Possibly slight increase in urine output over the last several days. No additional complaints at this time. Patient did have his Lisinopril increased on 03/14/22 from 5 --> 10 mg daily. In the ER he is afebrile, HD stable, NAD. ER Course: Lasix 40mg IV Albuterol 2.5mg neb Admission Exam Per Admitting Provider General: patient resting comfortably, NAD, non-toxic in appearance, AA&O x 4 Skin: warm, dry, intact, no rashes or lesions HEENT: NC/AT, PERRL, EOMI, anicteric sclera, conjunctiva without injection, external ear normal to inspection and nontender, nares patent, moist mucus membranes, dentition intact, no oropharyngeal lesions, neck supple, trachea midline, no LAD, no thyromegaly, no JVD Heart: +S1/S2, regular, no m/r/g Lungs: equal air entry bilaterally, no rales/rhonchi/wheezes Abd: +BS, soft, NT/ND, no masses/organomegaly/ascites, colostomy bag in place with normal appearing output, pink stoma, no bleeding/erythema Ext: warm, 2+ pulses in UE/LE bilaterally, no clubbing/cyanosis or edema Neuro: nonfocal, patient AA&O x 4, speech intact, no facial droop, moving all extremities on command with equal strength 5/5 Principal Diagnosis DINORAH, hyperkalemia Discharge Exam Constitutional NAD. Vitals WNL. Respiratory CTA bilaterally. No rhonchi, wheezing, or crackles. Cardiovascular RRR. No murmurs noted. No LE edema. Gastrointestinal (Abdomen) Soft, distended, non tender. +BS. No masses noted. Psychiatric Alert. Mood and affect congruent. Discharge Data Allergies Allergy/AdvReac Type Severity Reaction Status Date / Time adhesive tape Allergy Verified 03/14/22 10:14 latex Allergy Verified 03/14/22 10:14 No Known Drug Allergies Allergy Verified 03/14/22 10:14 Consultations 04/13/22 18:52 ED Decision to Admit Stat 04/13/22 22:21 Consult Nephrology Routine 04/14/22 15:59 Consult Urology Routine Ordered Studies 04/13/22 22:21 US renal/blad retro comp Routine Chest X-Ray 04/13/22 17:28 XR chest 1V portable CLINICAL HISTORY: Shortness of breath. COMPARISON STUDY: Chest radiograph May 12, 2021. FINDINGS: Lung volumes are normal. Lungs are clear. There is no pneumothorax or pleural effusion. Cardiac size is stable. Mediastinal contours are normal. There is no evidence for pulmonary edema. IMPRESSION: No acute cardiopulmonary findings. ACT 112: Negative or not required by law. Electronically signed by: Mukul Caballero M.D. 04/13/2022 7:31 PM Renal Ultrasound 04/13/22 22:21 US renal/blad retro comp CLINICAL HISTORY: DINORAH on CKD TECHNIQUE: Multiple sonographic real-time images of the kidneys and bladder were obtained. COMPARISON: Comparison is made to renal ultrasound 09/22/2020 FINDINGS: The right kidney measures 11.4 cm in length, and the left kidney measures 11.4 cm in length. The right kidney is normal in size, there is suggestion of scarring. No hydronephrosis is identified. No renal lesion is identified. No perinephric fluid collection is seen. The left kidney is normal in size, contour, cortical thickness and echogenicity. No hydronephrosis is identified. A 0.8 cm cyst is noted. No perinephric fluid collection is seen. The bladder is partially distended. No large intraluminal mass is seen. IMPRESSION: Unremarkable examination and in particular no evidence of hydronephrosis. ACT 112: Negative or not required by law. Electronically signed by: Ghassan Holcomb M.D. 04/14/2022 2:07 PM Hospital Course (1) DINORAH (acute kidney injury): Tereza Snow is a 72yo male with PMH significant for HTN, DM, Hypothyroidism, Bipolar and CKD III who was referred to ED yesterday by Dr. 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 Incidental finding of 0.8cm cyst in L kidney - Cr upon d/c 1.87, BUN 59 - pt to get BMP on Tuesday 04/17 or Wednesday 04/18 - f/u with hotel dining room cashier within 1-2 weeks of d/c Acute hyperkalemia - K upon admission 6.1 - No acute EKG changes.1st degree AV block present, no T waves changes - pt given IV fluids during hospitalization - held lisinopril, continue to hold upon d/c and discuss with hotel dining room cashier Lower extremity edema - mild lower extremity edema began about 6 months ago - in the setting of a new EKG changes, further cardiac workup recommended - BNP negative at 28 - pt was clinically euvolemic during hospitalization - Suggest sleep study outpatient for evaluation for sleep apnea BPH w/ urinary retention - PSA nonconcerning at 0.698 - Bladder scan showed post void residue 302cc - Nephro recommended Manrique insertion and urology consult for >100cc - uro recommended addition of tamsulosin - prescribed pt 0.4 mg tamsulosin, encouraged pt to discuss with PCP for possible dose increase and/or evaluation of orthostasis Type 2 diabetes mellitus - Home regimen: Metformin, Insulin 70/30 23u BID semaglutide and empagliflozin - Last GyyK2R=0.3 (04/13/22). Well controlled. - Lantus 10u BID - Goal blood glucose 110-140 - Held metformin due to DINORAH while hospitalized, resume upon d/c - Resume semaglutide and empagliflozin Essential hypertension - BP running slightly soft while hospitalized - pt checks his BP every few days at home; reports numbers in 130s/50-60s - continuing holding lisinopril upon d/c until further evaluation by nephrology - counseled pt about orthostasis w/ addition of tamsulosin Anemia - mild macrocytic anemia that is stable and asymptomatic in setting of CKD - Hgb= 13-->12.2, Hct= 36.7-->34.8 - macrocytosis with NBW=010.8. - continue B12 outpatient - no acute indication for MO therapy at this time Bipolar I disorder - moods stable and well controlled. - serum lithium low (0.4) - continue home lithium Hypothyroidism - chronic, well controlled on current regimen - last TSH = 1.397 (09/06/21) - continue synthroid 50mcg po daily Dyslipidemia -Continue Atorvastatin 10mg po daily (2) Acute hyperkalemia: (3) Lower extremity edema: (4) Stage 3b chronic kidney disease: (5) Type 2 diabetes mellitus: (6) Essential hypertension: (7) Anemia: (8) Bipolar I disorder, most recent episode (or current) manic: (9) Hypothyroidism: (10) Dyslipidemia: (11) Urinary retention with incomplete bladder emptying: Plan FEN/GI: carb consistent DVT PPx: SCDs Code: Full code Dispo: home Total Time Total Time Spent Total Time Spent (In Minutes): as per attending attestation Discharge Plan Discharge Items Patient Disposition: Home - Self-Care Reason For Visit: REFERRED BY DOC, ABNORMAL LABS Discharge Diagnosis: hyperkalemia, DINORAH in the setting of CKD Activity: Resume your previous activity Non-emergency contact: Primary Care Provider, Network Control Technician and Urologist Call non-emergency contact if: you have any medication questions and your symptoms worsen Follow-up/Referrals: Brionna Lama DO [Primary Care Provider] - 05/01/22 10:20 am So Coughlin MD [Physician] - (f/u hyperkalemia, DINORAH within 1-2 weeks following discharge) Diet: Carb Consistent or DM2 Ambulatory Orders: Basic Metabolic Panel (Routine) Timeframe: 2 Days Location: Determined by Patient Ordered By: Abeba Romo Attending Provider Instructions: You were admitted to the hospital for an acute injury to your kidneys and high potassium levels. You were treated with IV fluids to help hydrate your kidneys and not taking your lisinopril which could contribute to further kidney damage in the setting of an acute issue. A renal ultrasound was performed that was essentially normal, not showing any back up of fluid into/around your kidneys. With IV fluids, your kidney numbers and potassium levels normalized. You are to get blood work done Sunday (04/17) or Sunday (04/18) before seeing your hotel dining room cashier and PCP. A discharge summary will be sent to your primary care physician to ensure continuity of care. Please bring this discharge summary with you to your next office appointment so that your provider can review it at that time. Medications: Your medication list has been reviewed and reconciled upon discharge to ensure accuracy and continuity of care. An updated list of all your medications is included with your hospital discharge paperwork. Please review this list closely and make note of any changes to your medications. - Do not take your lisinopril at home. Discuss this medication further with your hotel dining room cashier. - A new medication has been added to help empty your bladder completely. This medication is called Flomax (or tamsulosin). You are to take 1 pill (0.4 mg) following breakfast each day. Discuss continuation of this medication with your primary care doctor. As this medication can lower your blood pressure, make sure to transition from sitting to standing slowly. - Otherwise, continue your medications as before hospitalization. Follow up appointments: - We have requested a follow up appointment with your primary care physician within one week of discharge. Please call their office if you do not hear from them. - We have also requested a follow up appointment with your hotel dining room cashier within 1-2 weeks of discharge. You are to get blood work done Sunday or Sunday before seeing them. - Keep all of your follow up appointments as already scheduled. If you cannot make an appointment, notify your provider. CONTACT YOUR PRIMARY CARE PROVIDER if you experience any of the following: - Difficulty following your treatment plan - Difficulty taking any of your medications CALL 911 OR GO TO THE EMERGENCY DEPARTMENT if you experience any of the following: - Weakness or confusion - Changes in your heart rate or feeling like it is beating abnormally - Sudden, severe abdominal pain or nausea/vomiting - Severe chest pain or chest pain that radiates to your jaw or arm - Sudden, severe shortness of breath or difficulty breathing Pending Studies at Discharge: No Stand-Alone Forms: [facility], Smoking Cessation Medications and DC Order Prescriptions: New tamsulosin 0.4 mg capsule 0.4 mg PO DAILY Qty: 30 0RF Rx Instructions: Take 1 pill after breakfast each day Continued multivitamin with iron tablet 1 tab PO QAM (DME) pen needle, diabetic [BD Ultra-Fine Ngozi Pen Needle] 32 gauge x 5/32" needle See Rx Instructions .ROUTE .MEDSUPPLY Qty: 300 3RF Rx Instructions: use 3 x daily metformin 500 mg tablet 500 mg PO BID Qty: 180 3RF omeprazole 20 mg capsule,delayed release(DR/EC) 20 mg PO QAM Qty: 90 1RF levothyroxine 50 mcg tablet 50 mcg PO DAILYBB Qty: 90 3RF atorvastatin 10 mg tablet 10 mg PO QAM Qty: 90 1RF lithium carbonate 150 mg capsule 150 mg PO DAILY (DME) OneTouch Verio test strips Strip See Rx Instructions .Route Rx Instructions: Test blood sugar once daily PRN Ozempic 0.25 mg or 0.5 mg(2 mg/1.5 mL) pen injector 0.5 mg subcut .weekly mecobalamin (vitamin B12) 1,000 mcg tablet,disintegrating 1,000 mcg SL QAM quetiapine 300 mg tablet 600 mg PO HS cholecalciferol (vitamin D3) 50 mcg (2,000 unit) capsule 50 mcg PO DAILY (DME) Dexcom G6 Sensor Device See Rx Instructions .Route Rx Instructions: As directed (DME) Dexcom G6 Transmitter Device See Rx Instructions .Route Rx Instructions: As directed Jardiance 10 mg tablet 10 mg PO DAILY Qty: 90 3RF insulin asp prt-insulin aspart [Novolog Mix 70-30FlexPen U-100] 100 unit/mL (70-30) insulin pen 23 unit subcut BID Qty: 3 3RF fluocinonide 0.05 % solution 1 applic TOPICAL DAILY Rx Instructions: apply to scalp zinc acetate 50 mg (zinc) Capsule 50 mg PO DAILY omega-3 fatty acids 1,000 mg Capsule 1,000 mg PO DAILY aspirin 81 mg Tablet,Delayed Release (Dr/Ec) 81 mg PO QAM Discontinued lisinopril 10 mg tablet 10 mg PO QAM Qty: 30 1RF Discharge Orders: Discharge Order (Routine); Ordered 11/19/22 Ordered By: Abeba Rooney Admission Data Admit Date/Time: 04/13/22 19:40 Attending Provider: Kajal Jara Admit Provider: Ale Segura Primary Care Provider: Brionna Lama Other Providers: Ale Segura ; So Coughlin ; Kenyon Louise ; Leonardo Gustafson ; Denver Fountain ; Marlen Mcdermott ; Franco Andujar ; Lou Pineda ; Archana Carney ; Amandeep Pearson ; Bee Hernandez ; Swetha Hull ; Shahzad Gonzalez ; Jim Morin Other Interventions: Discharge Summary Assessment (RN) Last Done: 04/15/22 11:44 Supervising Physician Co-Signing Physician Notes Resident Physician Supervision Note: I independently interviewed and examined the patient and verified the javier history and physical, reviewed labs and image studies and agree with resident findings and care plan. Resident Activity Tracking Resident Involvement: Resident Care Provided Care Provided: Adult Hospital Medicine
--- NOTE | 2022-04-15 13:20 | XCELERA ---
[id number]
== END 2022-04-15 14:28 | disposition home or self-care (01) | DRG 683 ==
LOC: ED 17:11 → SUATTDRO 19:40 → 2N 19:40